=== PATIENT | male | born 1955 | race Hispanic/Latino ===

== ENCOUNTER 2018-07-03 12:49 | Observation (INO) | payer MEDICARE, BC ==
[~2018-07-03] VITALS: Ht 177.8 cm; Wt 102.1 kg
--- OUTSIDE RECORDS SUMMARY | 2018-07-03 12:52 | XMS REPORT | Continuity of Care Document ---
Author Author [facility] Interface Address Unknown Phone Unavailable Problems Problem Status Onset Date Classification Date Reported Comments Source Epigastric pain 12/01/2017 06/16/2018 [facility] DIAC Active 11/27/2017 [facility] ABD PAIN Active 01/05/2017 [facility] Arthritis Resolved Problem 06/16/[address] [facility] Diabetes Resolved Problem 06/16/[address] [facility] Hypertension Resolved Problem 06/16/[address] [facility] Neuropathy Resolved Problem 06/16/[address] [facility] Carpal tunnel syndrome Resolved Problem 06/16/2018 [facility] Cataract Resolved Problem 06/16/2018 [facility] Stroke Resolved Problem 06/16/2018 [facility] Depression Resolved Problem 06/16/2018 [facility] Erectile dysfunction due to arterial insufficiency Resolved Problem 06/16/2018 [facility] Claudication Resolved Problem 06/16/2018 [facility] Obesity Resolved Problem 06/16/2018 [facility] Unspecified osteoarthritis, unspecified site Resolved Problem 06/16/2018 [facility] Sleep apnea Resolved Problem 06/16/2018 [facility] Testicular hypofunction Resolved Problem 06/16/2018 [facility] Other dorsalgia Resolved Problem 06/16/2018 [facility] RT HIP PAIN Active [facility] [place] EPIGASTRIC PAIN Active [facility] Medications Medication Details Route Status Patient Instructions Ordering Provider Order Date Source Metronidazole 500 MG Oral Tablet [Flagyl] 500 mg=1 tab, PO, Q8H, X 5 day, # 15 tab, 0 Refill(s) Active 01/06/2017 [facility] Amlodipine 10 mg, 2 tab, Route: PO, Drug form: TAB, Daily, Dosing Weight 102.273, kg, Start date: 01/06/17 9:00:00 CDT, Duration: 30 day, Stop date: 02/04/17 9:00:00 CSTNotes: (Same as: Norvasc) Inactive 01/06/2017 [facility] Docusate 100 mg, 1 cap, Route: PO, Drug form: CAP, BID, Dosing Weight 102.273, kg, Start date: 01/06/17 9:00:00 CDT, Duration: 30 day, Stop date: 02/04/17 17:00:00 CSTNotes: (Same as: Colace) (Do Not Crush) Inactive 01/06/2017 [facility] influenza virus vaccine, inactivated 0.5 mL, Route: IM, Drug Form: SUSP, Daily, Start date: 01/06/17 9:00:00 CDT, Duration: 1 doses or times, Stop date: 01/06/17 9:00:00 CDTNotes: (Same as: Fluzone Quadrivalent, Fluarix Quadrivalent) For 3 years of age and older (0.5 mL IM) Shake well before use Inactive 01/06/2017 [facility] Fluticasone propionate 0.05 MG/ACTUAT Metered Dose Nasal Burney [Flonase] 2 spray, Route: Each Affected Nostril, Drug Form: SPRY, Dosing Weight 102.273, kg, Daily, PRN Nasal Congestion, Start date: 01/06/17 0:22:00 CDT, Duration: 30 day, Stop date: 02/05/17 0:21:00 CSTNotes: (Same as: Flonase) Inactive 01/06/2017 [facility] Fluticasone propionate 0.05 MG/ACTUAT Metered Dose Nasal Burney [Flonase] 2 spray, Route: Each Affected Nostril, Drug Form: SPRY, Dosing Weight 102.273, kg, Q6H, PRN Nasal Congestion, Start date: 01/05/17 23:55:00 CDT, Duration: 30 day, Stop date: 02/04/17 23:54:00 CSTNotes: (Same as: Flonase) No Longer Active 01/06/2017 [facility] Insulin Lispro 6 unit, 0.06 mL, Route: SUB-Q, Drug form: SOLN, TID-Before Meals, Dosing Weight 102.273, kg, PRN Blood Glucose Results, Start date: 01/05/17 23:25:00 CDT, Duration: 30 day, Stop date: 02/04/17 23:24: 00 CSTNotes: Roll in palms of hands gently; Do not shake `vigorously. (Same as: Humalog ) "Single Patient Use Only " WASTE: F/P - Black; E - Municipal Trash Bin Stable for 28 days at room temperature. Expires in days from Date No Longer Active 01/06/2017 [facility] Dextrose 50% Syringe 25 gm, 50 mL, Route: IVP, Drug Form: INJ, Dosing Weight 102.273, kg, PRN, PRN Blood Glucose Results, Start date: 01/05/17 23:25:00 CDT, Duration: 30 day, Stop date: 02/04/17 22:24:00 [facility] No Longer Active 01/06/2017 [facility] Glucagon 1 mg, Route: IM, Drug form: PDR/INJ, PRN, Dosing Weight 102.273, kg, PRN Blood Glucose Results, Start date: 01/05/17 23:25:00 CDT, Duration: 30 day, Stop date: 02/04/17 22:24:00 [facility] No Longer Active 01/06/2017 [facility] Ondansetron 4 mg, Route: IV, Q6H, Dosing Weight 102.273, kg, PRN, Start date: 01/05/17 21:25:00 CDT, Duration: 30 day, Stop date: 02/04/17 21:24:00 [facility], Nausea and Vomiting Inactive 01/06/2017 [facility] Morphine 4 mg, 1 mL, Route: IV, Drug form: SOLN, Q6H, Dosing Weight 102.273, kg, PRN Pain Score 6-10, Start date: 01/05/17 21:25:00 CDT, Duration: 30 day, Stop date: 02/04/17 21:24:00 [facility], PainNotes: (Same as:MORPhine Sulfate) No Longer Active 01/06/2017 [facility] Vancomycin 1.25 gm, 250 mL, Route: IV, Drug form: INJ, [id number], Dosing Weight 84.091, kg, Start date: 01/05/17 20:00:00 CDT, Duration: 30 day, Stop date: 02/04/17 8:00:00 [facility], ABX Indication: Intra-abdominal Infec tionNotes: TIME CRITICAL MEDICATION Same as: Vancocin-NS (premixed) Infusion rate 2001 mg: infuse over 2.5 hours No Longer Active 01/06/2017 [facility] Flagyl 500 mg, 100 mL, Route: IVPB, Drug form: INJ, ABXQ8H, Dosing Weight 84.091, kg, Start date: 01/05/17 18:00:00 CDT, Duration: 5 day, Stop date: 01/10/17 10:00:00 CDT, ABX Indication: Intra-abdominal Infec tionNotes: (Same as: Flagyl) Avoid alcohol. No Longer Active 01/05/2017 [facility] cefepime 1 gm, Route: IVPB, ABXQ8H, Dosing Weight 84.091, kg, (CrCl >/=50 ml/min), Start date: 01/05/17 18:00:00 CDT, Duration: 5 day, Stop date: 01/10/17 10:00:00 CDT, ABX Indication: Intra-abdominal InfectionNotes: (Same As: Maxipime) MEDICATION WASTE Product Size: 1000 mg Product Wasted: ___ mg No Longer Active 01/05/2017 [facility] Vancomycin 1 ea, Route: MISC, ONCALL, Dosing Weight 84.091, kg, Start date: 01/05/17 18:00:00 CDT, day, Stop date: 01/05/17 18:00:00 CDT, Pharmacy to dose, ABX Indication: Intra-abdominal Infection Inactive 01/05/2017 [facility] Glucagon 1 mg, Route: IM, Drug form: PDR/INJ, PRN, Dosing Weight 102.273, kg, PRN Blood Glucose Results, Start date: 01/05/17 17:28:00 CDT, Duration: 30 day, Stop date: 02/04/17 16:27:00 [facility] No Longer Active 01/05/2017 [facility] Dextrose 50% Syringe 12.5 gm, 25 mL, Route: IVP, Drug Form: INJ, Dosing Weight 102.273, kg, PRN, PRN Blood Glucose Results, Start date: 01/05/17 17:28:00 CDT, Duration: 30 day, Stop date: 02/04/17 16:27:00 [facility] No Longer Active 01/05/2017 [facility] sodium chloride 0.9% 1000 ml INJ 1,000 mL 1,000 mL, Rate: 125 ml/hr, Infuse over: 8 hr, Route: IV, Dosing Weight 102.273 kg, Total Volume: 1,000, Start date: 01/05/17 17:27:00 CDT, Duration: 30 day, Stop date: 02/04/17 17:26:00 [facility] No Longer Active 01/05/2017 [facility] Ondansetron 4 mg, 2 mL, Route: IVP, Drug form: INJ, Q6H, Dosing Weight 102.273, kg, PRN Nausea & Vomiting, Start date: 01/05/17 17:26:00 CDT, Duration: 30 day, Stop date: 02/04/17 17:25:00 CSTNotes: (Same as: Zofran) MEDICATION WASTE Product Size: 4 mg Product Wasted: ___ mg No Longer Active 01/05/2017 [facility] Acetaminophen 650 mg, 2 tab, Route: PO, Drug form: TAB, Q4H, Dosing Weight 102.273, kg, PRN Pain 1-3/Temp > 100.4 F, Start date: 01/05/17 17:26:00 CDT, Duration: 30 day, Stop date: 02/04/17 17:25:00 CSTNotes: Do not exceed 4 gm/day. (Same as: Tylenol) No Longer Active 01/05/2017 [facility] Zosyn 3.375 gm, Route: IVPB, Drug form: PDR/INJ, ABXQ8H, Dosing Weight 84.091, kg, CrCl >=20 ml/min infuse over 4 hours, Priority: STAT, Start date: 01/05/17 17:03:00 CDT, Duration: 5 day, Stop date: 01/10/17 9:03:00 CDT, ABX Indication: Intra-abdominal In... Inactive 01/05/2017 [facility] pregabalin 100 MG Oral Capsule [Lyrica] 100 mg=1 cap, PO, BID, 0 Refill(s) No Longer Active 01/05/2017 [facility] Metformin 1,000 mg, PO, BID, 0 Refill(s) Active 01/05/2017 [facility] Omeprazole 40 mg, PO, Daily, 0 Refill(s) No Longer Active 01/05/2017 [facility] Amlodipine 10 mg, PO, Daily, 0 Refill(s) Active 01/05/2017 [facility] Allergies, Adverse Reactions, Alerts Substance Category Reaction Severity Reaction type Status Date Reported Comments Source Immunizations Immunization Date Given Site Status Last Updated Comments Source influenza virus vaccine, inactivated 01/06/2017 Not Given [facility] Results Order Name Results Value Reference Range Date Interpretation Comments Source Abdomen 2 views DX Abdomen 2 views DX 2 VIEW ABDOMEN INDICATION: Food poisoning 2 weeks ago. Patient now says her "stomach doesn't feel right" however she denies nausea, abdominal pain, vomiting or diarrhea. COMPARISON: No priors available. The bowel gas pattern, soft tissues and bones appear normal. Lung bases clear. IMPRESSION: Normal exam. END IMPRESSION SL: [id number] 11/27/2017 - - Read by: Kvng Anthony MD Dictated Date/time: 11/27/17 16:50 Electronically Signed by: Kvng Anthony MD 11/27/17 16:51 FINAL REPORT [facility] Spine lumbar wo contrast MRI Spine lumbar wo contrast MRI EXAM: MRI LUMBAR SPINE WITHOUT CONTRAST DATE: 02/14/2017 6:16 PM [facility] . ORDERING PHYSICIAN: Kallie Rivera MD CLINICAL INDICATION: back pain - back pain; TECHNIQUE: Multiplanar, multisequence MRI lumbar spine without IV contrast COMPARISON: Unavailable FINDINGS: For the purposes of enumeration, the lowest well formed intervertebral disc was counted as L5-S1 on this exam. INTRASPINAL CONTENTS/CONUS: The conus terminates at L1-L2. No definite dural based lesion. VERTEBRAE: The vertebrae are normal in height. No focal suspicious bone marrow signal abnormality. PARASPINAL SOFT TISSUES: No edema or definite masses. No aortic aneurysm. DISC SPACES, SPINAL CANAL, AND NEURAL FORAMINA: T12-L1. Intervertebral disc height and signal are maintained. Posterior elements are normal. There is no stenosis. L1-L2. Intervertebral disc height and signal are maintained. Posterior elements are normal. There is no stenosis. L2-L3. There is bilateral facet hypertrophy with ligamentous redundancy. This is dehydrated with small diffuse bulge. Central canal measures 11 mm. Lateral recesses are patent. There is mild narrowing of the neural foramina with no mass effect on the L2 nerve roots. L3-L4. There is severe facet hypertrophy with ligamentous redundancy. There is 2 mm anterolisthesis of L3 relative to L4. The disc is dehydrated with small pseudobulge. Central canal measures 7 mm with no cauda equina mass effect. Lateral recesses are narrowed without compression of L4 normal disc. There is moderate to severe narrowing of the right neural foramen and moderate narrowing of the left. There is mass effect on the exiting right L3 nerve root. L4-L5. There is bilateral facet hypertrophy with ligamentous redundancy. There is minimal anterolisthesis of L4 relative L5. The disc is dehydrated with annular pseudobulge but no substantial height loss. Central canal measures 8 mm with no cauda equina crowding. Lateral recesses are narrowed with disc and facets contacting both descending L5 nerve. There is moderate to severe narrowing of the right neural foramina moderate narrowing of the left. L5-S1. Discs dehydrated with diffuse disc bulge. There is mild facet hypertrophy. Central canal measures 13 mm. lateral recesses are patent. There is moderate neuroforaminal foramina bilaterally. IMPRESSION: 1. L3-4 and L4-5 facet arthropathy, mild grade 1 spondylolisthesis, and mild spinal stenosis without cauda equina crowding. There is moderate to severe narrowing of the neural foramina on the right at both levels 2. Please see additional comment above. 02/14/2017 - - Read by: Edward Escobar MD Dictated Date/time: 02/15/17 06:21 Electronically Signed by: Edward Escobar MD 02/15/17 06:[address] [facility] CHEM PANEL Lactic Acid Lvl 1.9 mMol/L 0.5 - 2.2 01/06/2017 [facility] URINE AND STOOL UA Leuk Est Negative (01/05/17 7:37 PM) Negative 01/06/2017 [facility] URINE AND STOOL UA Sq Epi Occasional /LPF Few /LPF 01/06/2017 [facility] URINE AND STOOL UA Blood Negative (01/05/17 7:37 PM) Negative 01/06/2017 [facility] URINE AND STOOL UA Nitrite Negative (01/05/17 7:37 PM) Negative 01/06/2017 [facility] URINE AND STOOL UA WBC 1 /HPF 0 - 5 01/06/2017 [facility] URINE AND STOOL UA Protein Negative mg/dL Negative mg/dL 01/06/2017 [facility] URINE AND STOOL UA Glucose 500 mg/dL Negative mg/dL 01/06/2017 [facility] URINE AND STOOL UA pH 5.0 5.0 - 8.0 01/06/2017 [facility] URINE AND STOOL UA Ketones Trace mg/dL Negative mg/dL 01/06/2017 [facility] URINE AND STOOL UA Bili Negative *NA* (01/05/17 7:37 PM) Negative 01/06/2017 [facility] URINE AND STOOL UA Turbidity Clear (01/05/17 7:37 PM) Clear 01/06/2017 [facility] URINE AND STOOL UA Spec Grav 1.031 <=1.030 01/06/2017 [facility] URINE AND STOOL UA Color Ltyellow 01/06/2017 [facility] URINE AND STOOL UA Urobilinogen <=1.0 mg/dL 0.1 - 1.0 01/06/2017 [facility] URINE AND STOOL UA RBC null 0 - 2 01/06/2017 [facility] CARDIAC ENZYMES BNP 16 pg/mL <=100 pg/mL 01/05/2017 [facility] CARDIAC ENZYMES Troponin-I null 0.00 - 0.40 01/05/2017 [facility] CHEM PANEL Globulin 2.9 g/dL 2.7 - 4.2 01/05/2017 [facility] CHEM PANEL Bili Indirect 0.4 mg/dL 0.0 - 1.0 01/05/2017 [facility] CHEM PANEL A/G Ratio 1.1 0.7 - 1.6 01/05/2017 [facility] CHEM PANEL Bili Total 0.5 mg/dL 0.2 - 1.3 01/05/2017 [facility] CHEM PANEL Bili Direct 0.1 mg/dL 0.0 - 0.3 01/05/2017 [facility] CHEM PANEL Total Protein 6.2 g/dL 6.4 - 8.4 01/05/2017 [facility] CHEM PANEL ALT 46 unit/L 0 - 65 01/05/2017 [facility] CHEM PANEL Albumin Lvl 3.3 g/dL 3.5 - 5.0 01/05/2017 [facility] CHEM PANEL Alk Phos 51 unit/L 39 - 136 01/05/2017 [facility] CHEM PANEL AST 20 unit/L 0 - 37 01/05/2017 [facility] ELECTROLYTES AGAP 14.3 meq/L 10.0 - 20.0 01/05/2017 [facility] ELECTROLYTES eGFR 71 mL/min/1.73m2 01/05/2017 Result Comment: The eGFR is calculated using the CKD-EPI formula. In most young, healthy individuals the eGFR will be >90 mL/min/1.73m2. The eGFR declines with age. An eGFR of 60-89 may be normal in some populations, particularly the elderly, for whom the CKD-EPI formula has not been extensively validated. Use of the eGFR is not recommended in the following populations: Individuals with unstable creatinine concentrations, including patients and those with serious co-morbid conditions. Patients with extremes in muscle mass or diet. The data above are obtained from the National Kidney Disease Education Program (NKDEP) which additionally recommends that when the eGFR is used in patients with extremes of body mass index for purposes of drug dosing, the eGFR should be multiplied by the estimated BMI. [facility] ELECTROLYTES Calcium Lvl 7.6 mg/dL 8.5 - 10.5 01/05/2017 [facility] ELECTROLYTES Chloride Lvl 103 meq/L 95 - 109 01/05/2017 [facility] ELECTROLYTES CO2 27 meq/L 24 - 32 01/05/2017 [facility] ELECTROLYTES Sodium Lvl 140 meq/L 135 - 145 01/05/2017 [facility] ELECTROLYTES Potassium Lvl 4.3 meq/L 3.5 - 5.1 01/05/2017 [facility] ELECTROLYTES Glucose Lvl 178 mg/dL 70 - 99 01/05/2017 [facility] ELECTROLYTES BUN 21 mg/dL 7 - 22 01/05/2017 [facility] ELECTROLYTES Creatinine Lvl 1.10 mg/dL 0.50 - 1.40 01/05/2017 [facility] RBC 4.32 M/CMM 4.70 - 6.10 01/05/2017 [facility] WBC 5.5 K/CMM 3.7 - 10.4 01/05/2017 [facility] MCV 94.0 fL 80.0 - 94.0 01/05/2017 [facility] MCHC 34.0 g/dL 32.0 - 36.0 01/05/2017 [facility] MCH 32.0 pg 27.0 - 31.0 01/05/2017 [facility] Hgb 13.8 g/dL 14.0 - 18.0 01/05/2017 [facility] Hct 40.6 % 42.0 - 54.0 01/05/2017 [facility] RDW 13.6 % 11.5 - 14.5 01/05/2017 [facility] MPV 8.3 fL 7.4 - 10.4 01/05/2017 [facility] Platelet 160 K/CMM 133 - 450 01/05/2017 [facility] HEMATOLOGY Lymphocytes 2.5 % 20.0 - 40.0 01/05/2017 [facility] HEMATOLOGY Eosinophils 0.1 % 0.0 - 4.0 01/05/2017 [facility] HEMATOLOGY Monocytes 4.8 % 2.0 - 12.0 01/05/2017 [facility] HEMATOLOGY Segs 92.3 % 45.0 - 75.0 01/05/2017 [facility] HEMATOLOGY Monocytes # 0.3 K/CMM 0.0 - 0.8 01/05/2017 [facility] HEMATOLOGY Lymphocytes # 0.1 K/CMM 1.0 - 5.5 01/05/2017 [facility] HEMATOLOGY Segs-Bands # 5.1 K/CMM 1.5 - 8.1 01/05/2017 [facility] HEMATOLOGY Basophils 0.3 % 0.0 - 1.0 01/05/2017 [facility] Vital Signs Vital Sign Value Date Comments Source Systolic (mm Hg) 116 01/06/2017 [facility] Diastolic (mm Hg) 65 01/06/2017 [facility] Respitory Rate 16 01/06/2017 [facility] Heart Rate 76 01/06/2017 [facility] Temperature Oral (F) 98.1 F 01/06/2017 [facility] Respitory Rate 16 01/06/2017 [facility] Heart Rate 89 01/06/2017 [facility] Temperature Oral (F) 99.9 F 01/06/2017 [facility] Systolic (mm Hg) 119 01/06/2017 [facility] Diastolic (mm Hg) 63 01/06/2017 [facility] Temperature Oral (F) 99 F 01/06/2017 [facility] Systolic (mm Hg) 115 01/06/2017 [facility] Diastolic (mm Hg) 62 01/06/2017 [facility] Respitory Rate 17 01/06/2017 [facility] Heart Rate 91 01/06/2017 [facility] Height 177.8 cm 01/05/2017 [facility] Weight 102.273 01/05/2017 [facility] BMI Calculated 32.35 01/05/2017 [facility] Encounters Location Location Details Encounter Type Encounter Number Reason For Visit Attending Provider ADM Date DC Date Status Source [facility] OP Therapy Patients [id number] Anderson Bell 04/11/2014 05/11/2014 [facility] OP Therapy Patients [id number] Anderson Bell 05/15/2014 06/14/2014 [facility] Observation [id number] Chilo Zarco 01/05/2017 01/06/2017 [facility] Outpatient Imaging [facility] Out[facility] Diag Services [id number] Kallie Rivera 02/14/2017 02/15/2017 [facility] Outpatient [id number] Ilan Moreno 11/27/2017 11/28/2017 [facility] Outpatient [id number] ALYSSIA STEVEN 05/29/2018 [facility] Outpatient [id number] ALYSSIA HARRIS 11/27/2018 Active [facility] Procedures Procedure Code Date Perfomer Comments Source Ankle joint operations 546220033 [facility] Carpal tunnel release [id number] [facility] Knee replacement [id number] [facility] Ankle joint operations [id number] [facility] Carpal tunnel release [id number] [facility] Knee replacement [id number] [facility] Cataract surgery [id number] [facility] [id number] [facility]
--- OUTSIDE RECORDS SUMMARY | 2018-07-03 12:52 | XMS REPORT | Summary of Care ---
Author Author [facility] Organization [facility] Address Unknown Phone Unavailable Encounter HQ Kaia(JOSÉ MANUEL) [id number] Date(s): 01/05/17 - 01/06/17 [facility] [address] [place] [address]- Discharge Disposition: Home or Self Care Attending Physician: Chilo Zarco MD Admitting Physician: Chilo Zarco MD Vital Signs 1 2 3 Most recent to oldest [Reference Range]: 177.8 cm (01/05/17 5:21 PM) Height 98.1 DegF (01/06/17 6:45 AM) 99.9 DegF *HI* (01/06/17 3:42 AM) 99 DegF (01/05/17 11:06 PM) Temperature Oral [96.4-99.1 DegF] 116/65 mmHg (01/06/17 6:45 AM) 119/63 mmHg (01/06/17 3:42 AM) 115/62 mmHg (01/05/17 11:06 PM) Blood Pressure [90-140/60-90 mmHg] 16 BRMIN (01/06/17 6:45 AM) 16 BRMIN (01/06/17 3:42 AM) 17 BRMIN (01/05/17 11:06 PM) Respiratory Rate [14-20 BRMIN] 76 bpm (01/06/17 6:45 AM) 89 bpm (01/06/17 3:42 AM) 91 bpm (01/05/17 11:06 PM) Peripheral Pulse Rate [60-100 bpm] 102.273 kg (01/05/17 5:21 PM) Weight 32.35 m2 (01/05/17 5:21 PM) Body Mass Index Problem List Condition Effective Dates Status Health Status Informant Arthritis(Confirmed) Resolved Diabetes(Confirmed) Resolved Hypertension(Confirm Resolved ed) Neuropathy(Confirmed Resolved ) Allergies, Adverse Reactions, Alerts Substance Reaction Severity Status NKDA Active Medications acetaminophen 650 mg, 2 tab, Route: PO, Drug form: TAB, Q4H, Dosing Weight 102.273, kg, PRN Pa in 1-3/Temp > 100.4 F, Start date: 01/05/17 17:26:00 CDT, Duration: 30 day, Stop date: 02/04/17 17:25:00 PERIOPERATIVE ASSISTANT Notes: Do not exceed 4 gm/day. (Same as: Tylenol) Start Date: 01/05/17 Stop Date: 01/06/17 Status: Discontinued amLODIPine 10 mg, 2 tab, Route: PO, Drug form: TAB, Daily, Dosing Weight 102.273, kg, Start date: 01/06/17 9:00:00 CDT, Duration: 30 day, Stop date: 02/04/17 9:00:00 PERIOPERATIVE ASSISTANT Notes: (Same as: Norvasc) Start Date: 01/06/17 Stop Date: 01/06/17 Status: Discontinued amLODIPine 10 mg, PO, Daily, 0 Refill(s) Start Date: 01/05/17 Status: Ordered cefepime + sodium chloride 0.9% INJ 100 mL 1 gm, Route: IVPB, ABXQ8H, Dosing Weight 84.091, kg, (CrCl >/=50 ml/min), Start date: 01/05/17 18:00:00 CDT, Duration: 5 day, Stop date: 01/10/17 10:00:00 CDT, ABX Indication: Intra-abdominal Infection Notes: (Same As: Maxipime) MEDICATION WASTE Product Size: 1000 mgProduc t Wasted: ___ mg Start Date: 01/05/17 Stop Date: 01/06/17 Status: Discontinued Dextrose 50% Syringe 25 gm, 50 mL, Route: IVP, Drug Form: INJ, Dosing Weight 102.273, kg, PRN, PRN Bl ood Glucose Results, Start date: 01/05/17 23:25:00 CDT, Duration: 30 day, Stop d ate: 02/04/17 22:24:00 PERIOPERATIVE ASSISTANT Start Date: 01/05/17 Stop Date: 01/06/17 Status: Discontinued Dextrose 50% Syringe 12.5 gm, 25 mL, Route: IVP, Drug Form: INJ, Dosing Weight 102.273, kg, PRN, PRN Blood Glucose Results, Start date: 01/05/17 23:25:00 CDT, Duration: 30 day, Stop date: 02/04/17 22:24:00 PERIOPERATIVE ASSISTANT Start Date: 01/05/17 Stop Date: 01/06/17 Status: Discontinued Dextrose 50% Syringe 12.5 gm, 25 mL, Route: IVP, Drug Form: INJ, Dosing Weight 102.273, kg, PRN, PRN Blood Glucose Results, Start date: 01/05/17 17:28:00 CDT, Duration: 30 day, Stop date: 02/04/17 16:27:00 PERIOPERATIVE ASSISTANT Start Date: 01/05/17 Stop Date: 01/06/17 Status: Discontinued Dextrose 50% Syringe 25 gm, 50 mL, Route: IVP, Drug Form: INJ, Dosing Weight 102.273, kg, PRN, PRN Bl ood Glucose Results, Start date: 01/05/17 17:28:00 CDT, Duration: 30 day, Stop d ate: 02/04/17 16:27:00 PERIOPERATIVE ASSISTANT Start Date: 01/05/17 Stop Date: 01/06/17 Status: Discontinued docusate 100 mg, 1 cap, Route: PO, Drug form: CAP, BID, Dosing Weight 102.273, kg, Start date: 01/06/17 9:00:00 CDT, Duration: 30 day, Stop date: 02/04/17 17:00:00 PERIOPERATIVE ASSISTANT Notes: (Same as: Colace) (Do Not Crush) Start Date: 01/06/17 Stop Date: 01/06/17 Status: Discontinued Flagyl 500 mg, 100 mL, Route: IVPB, Drug form: INJ, ABXQ8H, Dosing Weight 84.091, kg, S tart date: 01/05/17 18:00:00 CDT, Duration: 5 day, Stop date: 01/10/17 10:00:00 CDT, ABX Indication: Intra-abdominal Infection Notes: (Same as: Flagyl) Avoid alcohol. Start Date: 01/05/17 Stop Date: 01/06/17 Status: Discontinued Flagyl 500 mg oral tablet 500 mg=1 tab, PO, Q8H, X 5 day, # 15 tab, 0 Refill(s) Start Date: 01/06/17 Stop Date: 01/11/17 Status: Ordered Flonase 0.05 mg/inh nasal spray 2 spray, Route: Each Affected Nostril, Drug Form: SPRY, Dosing Weight 102.273, k g, Daily, PRN Nasal Congestion, Start date: 01/06/17 0:22:00 CDT, Duration: 30 d ay, Stop date: 02/05/17 0:21:00 PERIOPERATIVE ASSISTANT Notes: (Same as: Flonase) Start Date: 01/06/17 Stop Date: 01/06/17 Status: Discontinued Flonase 0.05 mg/inh nasal spray 2 spray, Route: Each Affected Nostril, Drug Form: SPRY, Dosing Weight 102.273, k g, Q6H, PRN Nasal Congestion, Start date: 01/05/17 23:55:00 CDT, Duration: 30 da y, Stop date: 02/04/17 23:54:00 PERIOPERATIVE ASSISTANT Notes: (Same as: Flonase) Start Date: 01/05/17 Stop Date: 01/06/17 Status: Discontinued glucagon 1 mg, Route: IM, Drug form: PDR/INJ, PRN, Dosing Weight 102.273, kg, PRN Blood G lucose Results, Start date: 01/05/17 23:25:00 CDT, Duration: 30 day, Stop date: 02/04/17 22:24:00 PERIOPERATIVE ASSISTANT Start Date: 01/05/17 Stop Date: 01/06/17 Status: Discontinued glucagon 1 mg, Route: IM, Drug form: PDR/INJ, PRN, Dosing Weight 102.273, kg, PRN Blood G lucose Results, Start date: 01/05/17 17:28:00 CDT, Duration: 30 day, Stop date: 02/04/17 16:27:00 PERIOPERATIVE ASSISTANT Start Date: 01/05/17 Stop Date: 01/06/17 Status: Discontinued influenza virus vaccine, inactivated 0.5 mL, Route: IM, Drug Form: SUSP, Daily, Start date: 01/06/17 9:00:00 CDT, Dur ation: 1 doses or times, Stop date: 01/06/17 9:00:00 CDT Notes: (Same as: Fluzone Quadrivalent, Fluarix Quadrivalent)For 3 years of age a nd older (0.5 mL IM)Shake well before use Start Date: 01/06/17 Stop Date: 01/06/17 Status: Completed insulin lispro 6 unit, 0.06 mL, Route: SUB-Q, Drug form: SOLN, TID-Before Meals, Dosing Weight 102.273, kg, PRN Blood Glucose Results, Start date: 01/05/17 23:25:00 CDT, Durat ion: 30 day, Stop date: 02/04/17 23:24:00 PERIOPERATIVE ASSISTANT Notes: Roll in palms of hands gently; Do not shake `vigorously. (Same [facility]: [facility] )"Single Patient Use Only "WASTE: F/P - Black; E - Municipal Trash Bin Stabl e for 28 days at room temperature.Expires in days from Date Start Date: 01/05/17 Stop Date: 01/06/17 Status: Discontinued insulin lispro 2 unit, 0.02 mL, Route: SUB-Q, Drug form: SOLN, TID-Before Meals, Dosing Weight 102.273, kg, PRN Blood Glucose Results, Start date: 01/05/17 23:25:00 CDT, Durat ion: 30 day, Stop date: 02/04/17 23:24:00 PERIOPERATIVE ASSISTANT Notes: Roll in palms of hands gently; Do not shake `vigorously. (Same as: Gloria og )"Single Patient Use Only "WASTE: F/P - Black; E - Municipal Trash Bin Stabl e for 28 days at room temperature.Expires in days from Date Start Date: 01/05/17 Stop Date: 01/06/17 Status: Discontinued insulin lispro 4 unit, 0.04 mL, Route: SUB-Q, Drug form: SOLN, TID-Before Meals, Dosing Weight 102.273, kg, PRN Blood Glucose Results, Start date: 01/05/17 23:25:00 CDT, Durat ion: 30 day, Stop date: 02/04/17 23:24:00 PERIOPERATIVE ASSISTANT Notes: Roll in palms of hands gently; Do not shake `vigorously. (Same as: Humal og )"Single Patient Use Only "WASTE: F/P - Black; E - Municipal Trash Bin Stabl e for 28 days at room temperature.Expires in days from Date Start Date: 01/05/17 Stop Date: 01/06/17 Status: Discontinued insulin lispro 8 unit, 0.08 mL, Route: SUB-Q, Drug form: SOLN, TID-Before Meals, Dosing Weight 102.273, kg, PRN Blood Glucose Results, Start date: 01/05/17 23:25:00 CDT, Durat ion: 30 day, Stop date: 02/04/17 23:24:00 PERIOPERATIVE ASSISTANT Notes: Roll in palms of hands gently; Do not shake `vigorously. (Same as: Humal og )"Single Patient Use Only "WASTE: F/P - Black; E - Municipal Trash Bin Stabl e for 28 days at room temperature.Expires in days from Date Start Date: 01/05/17 Stop Date: 01/06/17 Status: Discontinued insulin lispro 10 unit, 0.1 mL, Route: SUB-Q, Drug form: SOLN, TID-Before Meals, Dosing Weight 102.273, kg, PRN Blood Glucose Results, Start date: 01/05/17 23:25:00 CDT, Durat ion: 30 day, Stop date: 02/04/17 23:24:00 PERIOPERATIVE ASSISTANT Notes: Roll in palms of hands gently; Do not shake `vigorously. (Same as: Humal og )"Single Patient Use Only "WASTE: F/P - Black; E - Municipal Trash Bin Stabl e for 28 days at room temperature.Expires in days from Date Start Date: 01/05/17 Stop Date: 01/06/17 Status: Discontinued Lyrica 100 mg oral capsule 100 mg=1 cap, PO, BID, 0 Refill(s) Start Date: 01/05/17 Stop Date: 01/06/17 Status: Discontinued metFORMIN 1,000 mg, PO, BID, 0 Refill(s) Start Date: 01/05/17 Status: Ordered morphine Sulfate 4 mg, 1 mL, Route: IV, Drug form: SOLN, Q6H, Dosing Weight 102.273, kg, PRN Pain Score 6-10, Start date: 01/05/17 21:25:00 CDT, Duration: 30 day, Stop date: 21:24:00 PERIOPERATIVE ASSISTANT, Pain Notes: (Same as:MORPhine Sulfate) Start Date: 01/05/17 Stop Date: 01/06/17 Status: Discontinued omeprazole 40 mg, PO, Daily, 0 Refill(s) Start Date: 01/05/17 Stop Date: 01/06/17 Status: Discontinued ondansetron 4 mg, 2 mL, Route: IVP, Drug form: INJ, Q6H, Dosing Weight 102.273, kg, PRN Naus ea & Vomiting, Start date: 01/05/17 17:26:00 CDT, Duration: 30 day, Stop date: 02/04/17 17:25:00 PERIOPERATIVE ASSISTANT Notes: (Same as: Ivana) MEDICATION WASTE Product Size: 4 mgProduct Was merritt: ___ mg Start Date: 01/05/17 Stop Date: 01/06/17 Status: Discontinued ondansetron 4 mg, Route: IV, Q6H, Dosing Weight 102.273, kg, PRN, Start date: 01/05/17 21:25 :00 CDT, Duration: 30 day, Stop date: 02/04/17 21:24:00 PERIOPERATIVE ASSISTANT, Nausea and Vomiting Start Date: 01/05/17 Stop Date: 01/05/17 Status: Deleted sodium chloride 0.9% 1000 ml INJ 1,000 mL 1,000 mL, Rate: 125 ml/hr, Infuse over: 8 hr, Route: IV, Dosing Weight 102.273 k g, Total Volume: 1,000, Start date: 01/05/17 17:27:00 CDT, Duration: 30 day, Sto p date: 02/04/17 17:26:00 PERIOPERATIVE ASSISTANT Start Date: 01/05/17 Stop Date: 01/06/17 Status: Discontinued vancomycin 1.25 gm, 250 mL, Route: IV, Drug form: INJ, [id number], Dosing Weight 84.091, kg, S tart date: 01/05/17 20:00:00 CDT, Duration: 30 day, Stop date: 02/04/17 8:00:00 PERIOPERATIVE ASSISTANT, ABX Indication: Intra-abdominal Infection Notes: TIME CRITICAL MEDICATIONSame as: Vancocin-NS (premixed)Infusion rate< 1000 mg: infuse over 1 [id number] - 1500 mg: infuse over 1.5 [id number] - 2000 mg: infuse over 2 hours> 2001 mg: infuse over 2.5 hours Start Date: 01/05/17 Stop Date: 01/06/17 Status: Discontinued Vancomycin Pharmacy Dosing 1 ea, Route: MISC, ONCALL, Dosing Weight 84.091, kg, Start date: 01/05/17 18:00: 00 CDT, day, Stop date: 01/05/17 18:00:00 CDT, Pharmacy to dose, ABX Indication: Intra-abdominal Infection Start Date: 01/05/17 Stop Date: 01/05/17 Status: Deleted Zosyn 3.375 gm, Route: IVPB, Drug form: PDR/INJ, ABXQ8H, Dosing Weight 84.091, kg, CrC l >=20 ml/min infuse over 4 hours, Priority: STAT, Start date: 01/05/17 17:03:00 CDT, Duration: 5 day, Stop date: 01/10/17 9:03:00 CDT, ABX Indication: Intra-abdominal In... Start Date: 01/05/17 Stop Date: 01/05/17 Status: Discontinued Results ELECTROLYTES Most recent to 1 oldest [Reference Range]: Sodium Lvl [135-145 140 mEq/L mEq/L] (01/05/17 6:00 PM) Potassium Lvl 4.3 mEq/L [3.5-5.1 mEq/L] (01/05/17 6:00 PM) Chloride Lvl [95-109 103 mEq/L mEq/L] (01/05/17 6:00 PM) CO2 [24-32 mEq/L] 27 mEq/L (01/05/17 6:00 PM) AGAP [10.0-20.0 14.3 mEq/L mEq/L] (01/05/17 6:00 PM) CHEM PANEL Most recent to 1 oldest [Reference Range]: Creatinine Lvl 1.10 mg/dL [0.50-1.40 mg/dL] (01/05/17 6:00 PM) eGFR 71 mL/min/1.73m2 1 *NA* (01/05/17 6:00 PM) BUN [7-22 mg/dL] 21 mg/dL (01/05/17 6:00 PM) Glucose Lvl [70-99 178 mg/dL mg/dL] *HI* (01/05/17 6:00 PM) Total Protein 6.2 g/dL [6.4-8.4 g/dL] *LOW* (01/05/17 6:00 PM) Albumin Lvl [3.5-5.0 3.3 g/dL g/dL] *LOW* (01/05/17 6:00 PM) Globulin [2.7-4.2 2.9 g/dL g/dL] (01/05/17 6:00 PM) A/G Ratio [0.7-1.6] 1.1 (01/05/17 6:00 PM) Calcium Lvl 7.6 mg/dL [8.5-10.5 mg/dL] *LOW* (01/05/17 6:00 PM) ALT [0-65 unit/L] 46 unit/L (01/05/17 6:00 PM) AST [0-37 unit/L] 20 unit/L (01/05/17 6:00 PM) Alk Phos [39-136 51 unit/L unit/L] (01/05/17 6:00 PM) Bili Total [0.2-1.3 0.5 mg/dL mg/dL] (01/05/17 6:00 PM) Bili Direct [0.0-0.3 0.1 mg/dL mg/dL] (01/05/17 6:00 PM) Bili Indirect 0.4 mg/dL [0.0-1.0 mg/dL] (01/05/17 6:00 PM) Lactic Acid Lvl 1.9 mMol/L [0.5-2.2 mMol/L] (01/05/17 7:37 PM) 1Result Comment: The eGFR is calculated using the [...] from the National Kidney Disease Education Program ( NKDEP) which additionally recommends that when the eGFR is used in patients with extremes of body mass index for purposes of drug dosing, the eGFR should be mul tiplied by the estimated BMI. CARDIAC ENZYMES Most recent to 1 oldest [Reference Range]: Troponin-I <0.02 ng/mL [0.00-0.40 ng/mL] (01/05/17 6:00 PM) BNP [<=100 pg/mL] 16 pg/mL (01/05/17 6:00 PM) URINE AND STOOL Most recent to 1 oldest [Reference Range]: UA Turbidity [Clear] Clear (01/05/17 7:37 PM) UA Color Ltyellow *NA* (01/05/17 7:37 PM) UA pH [5.0-8.0] 5.0 (01/05/17 7:37 PM) UA Spec Grav 1.031 [<=1.030] *HI* (01/05/17 7:37 PM) UA Glucose [Negative 500 mg/dL mg/dL] *ABN* (01/05/17 7:37 PM) UA Blood [Negative] Negative (01/05/17 7:37 PM) UA Ketones [Negative Trace mg/dL mg/dL] *ABN* (01/05/17 7:37 PM) UA Protein [Negative Negative mg/dL mg/dL] (01/05/17 7:37 PM) UA Urobilinogen <=1.0 mg/dL [0.1-1.0 mg/dL] *NA* (01/05/17 7:37 PM) UA Bili [Negative] Negative *NA* (01/05/17 7:37 PM) UA Leuk Est Negative [Negative] (01/05/17 7:37 PM) UA Nitrite Negative [Negative] (01/05/17 7:37 PM) UA WBC [0-5 /HPF] 1 /HPF (01/05/17 7:37 PM) UA RBC [0-2 /HPF] <1 /HPF (01/05/17 7:37 PM) UA Sq Epi [Few /LPF] Occasional /LPF *NA* (01/05/17 7:37 PM) HEMATOLOGY Most recent to 1 oldest [Reference Range]: WBC [3.7-10.4 K/CMM] 5.5 K/CMM (01/05/17 6:00 PM) RBC [4.70-6.10 4.32 M/CMM M/CMM] *LOW* (01/05/17 6:00 PM) Hgb [14.0-18.0 g/dL] 13.8 g/dL *LOW* (01/05/17 6:00 PM) Hct [42.0-54.0 %] 40.6 % *LOW* (01/05/17 6:00 PM) MCV [80.0-94.0 fL] 94.0 fL (01/05/17 6:00 PM) MCH [27.0-31.0 pg] 32.0 pg *HI* (01/05/17 6:00 PM) MCHC [32.0-36.0 34.0 g/dL g/dL] (01/05/17 6:00 PM) RDW [11.5-14.5 %] 13.6 % (01/05/17 6:00 PM) Platelet [133-450 160 K/CMM K/CMM] (01/05/17 6:00 PM) MPV [7.4-10.4 fL] 8.3 fL (01/05/17 6:00 PM) Segs [45.0-75.0 %] 92.3 % *HI* (01/05/17 6:00 PM) Lymphocytes 2.5 % [20.0-40.0 %] *LOW* (01/05/17 6:00 PM) Monocytes [2.0-12.0 4.8 % %] (01/05/17 6:00 PM) Eosinophils [0.0-4.0 0.1 % %] (01/05/17 6:00 PM) Basophils [0.0-1.0 0.3 % %] (01/05/17 6:00 PM) Segs-Bands # 5.1 K/CMM [1.5-8.1 K/CMM] (01/05/17 6:00 PM) Lymphocytes # 0.1 K/CMM [1.0-5.5 K/CMM] *LOW* (01/05/17 6:00 PM) Monocytes # [0.0-0.8 0.3 K/CMM K/CMM] (01/05/17 6:00 PM) Immunizations Not Given Vaccine Date Status Refusal Reason influenza virus vaccine, inactivated 01/06/17 Not Given Patient Refuses Procedures Procedure Date Related Diagnosis Body Site Ankle joint operations Carpal tunnel release Knee replacement Social History Social History Type Response Substance Abuse Use: None. Previous Treatment: None. Alcohol Current, Frequency: 1-2 times per month. Previous treatment: None. Alcohol use interferes with work or home: No. Drinks more than intended: No. Others hurt by drinking: No. Ready to change: No. Household alcohol concerns: No. Smoking Status Never smoker; Type: Cigarettes; Previous treatment: None; Exposure to Tobacco Smoke None; Cigarette Smoking Last 365 Days No; Reg Smoking Cessation Counseling No Assessment and Plan Extracted from: Title: Clinical Document Author: Chilo Zarco MD Date: 01/06/17 Date of admission: Date of discharge: 01/06/2017 Reason for admission 1. Gastroenteritis 2. Nausea vomiting 3. Diarrhea Hospital course Mr. Zendejas is a 58-year-old man who presented to a local hospital with nausea vomiting and diarrhea with a fever as high as 101.2. His symptoms started after having an outdoors barbecue event. He was admitted and pancultured. No clear cause for his diarrheal illness could be found. As his symptoms resolved rapidly with IV fluids and IV antibiotics including Flagyl, likely cause for his symptoms were attributed to viral gastroenteritis. Nevertheless, he was monitored a full 4 hours in the CDU. As his vitals remained stable and his symptoms are resolved, the patient will be discharged home. Patient seen and examined on the day of discharge Discharge condition fair Discharge to home Activity as tolerated Diabetic diet recommended Please see discharge medicine regulation form Follow-up with primary care physician Extracted from: Title: Clinical Document Author: Chilo Zarco MD Date: 01/05/17 Date of admission: Reason for admission 1. Gastroenteritis 2. Fever History of present illness Ms. Zendejas is a 61-year-old man with diabetes mellitus who comes in for evaluation of nausea vomiting and diarrhea that started this morning. Patient reports that he had a barbecue event at his house yesterday evening. During this particular event, patient ate significant amount of food including some spicy food. He went to bed feeling fine. He woke up this morning with nausea and vomiting. Since then he has had multiple diarrheal episodes. In the beginning he was having large bowel movements every hour up to 3 times in the early part of the day. Currently, he is having less intense and less frequent diarrhea now. His main issue is cramping in the abdomen. He was noted to have a fever of 101 in the urgent care where he was taken locally. CT abdomen was done which showed no acute findings except for a pulmonary nodule. Currently patient reports having abdominal cramping. Denies having any headache or vision changes. Denies having any pain with urination. Denies having any chest pain or left-sided chest discomfort. Denies having any palpitations. Denies having any new skin color changes. Patient denies seeing any blood or blood products in the stool Past medical history 1. Diabetes mellitus 2. GERD 3. Primary hypertension Medications At Home 1. Amlodipine 10 mg daily. 2. Please see admission medicine regulation form. Past surgical history 1. Bilateral hand surgery 2. Right knee surgery 3. Left ankle surgery Social history 1. Denies any tobacco use 2. Reports social alcohol use. Next Allergies: No known drug allergies Family history: Reviewed but noncontributory Review of systems: As per HPI Physical examination Vitals: Blood pressure 160/69, temperature 101.2, heart rate 105, respiratory 16, 96% room air. General: Awake alert oriented patient appears to be in pain HEENT: No scleral icterus. No JVD Neurologic: No facial asymmetry moving all extremities well. Cardiovascular: Regular rate rhythm S1-S2 Lungs: Clear to auscultation bilaterally. Abdomen: Soft nontender no rebound or guarding there is mild tenderness in the mid abdomen periumbilical region. Extremities: No peripheral edema. Skin: No skin rashes are seen. Laboratory data No laboratory data is available as of now. CT abdomen: Outside records reviewed that showed no acute abnormality except for right adrenal nodule. Assessment and plan Mr. Zendejas is a 61-year-old man who comes in with nausea and vomiting with diarrhea and fever as high as 101.2 concerning for viral or bacterial gastroenteritis. Gastroenteritis, possibley viral. Start supportive care with IV fluids. Start patient on vancomycin, and cefepime with Flagyl due to signs of service. Obtain blood and urine culture. Start stool studies for culture. Tachycardia As patient is quite dehydrated. Start patient on IV fluids. Diabetes mellitus Start patient on insulin sliding scale. Primary hypertension Systolic in the 160s. Start patient on home dose of amlodipine. DVT prophylaxis: SCDs Disposition: Pending clinical improvement
--- OUTSIDE RECORDS SUMMARY | 2018-07-03 12:53 | XMS REPORT | Summary of Care ---
Author Organization Unknown Address Unknown Phone Unavailable Encounter HQ Encntr_alias(FIN) [id number] Date(s): 05/15/14 - 06/13/14 [facility] Discharge Disposition: Home Physician Attending: Anderson Bell MD Vital Signs No data available for this section Problem List No data available for this section Allergies, Adverse Reactions, Alerts Substance Reaction Severity Status NKDA Active Medications No data available for this section Results No data available for this section Immunizations No data available for this section Procedures No data available for this section Social History No data available for this section Assessment and Plan No data available for this section
--- OUTSIDE RECORDS SUMMARY | 2018-07-03 12:53 | XMS REPORT | Summary of Care ---
Author Author [facility] Address Unknown Phone Unavailable Encounter HQ Encntr_alias(FIN) [id number] Date(s): 02/14/17 - 02/14/17 [facility] Outpatient Imaging [id number] [place] [phone] Discharge Disposition: Home or Self Care Attending Physician: Kallie Rivera MD Vital Signs No data available for this section Problem List Condition Effective Dates Status Health Status Informant Arthritis(Confirmed) Resolved Diabetes(Confirmed) Resolved Hypertension(Confirm Resolved ed) Neuropathy(Confirmed Resolved ) Allergies, Adverse Reactions, Alerts Substance Reaction Severity Status NKDA Active Medications No data available for this section Results No data available for this section Immunizations Not Given Vaccine Date Status Refusal [...] Smoking Cessation Counseling No Assessment and Plan No data available for this section
--- OUTSIDE RECORDS SUMMARY | 2018-07-03 12:53 | XMS REPORT | Summary of Care ---
Author Organization Unknown Address Unknown Phone Unavailable Encounter HQ Encntr_alias(FIN) [id number] Date(s): 04/11/14 - 05/10/14 [facility] Discharge Disposition: Home Physician Attending: Anderson Bell [...]
--- OUTSIDE RECORDS SUMMARY | 2018-07-03 12:53 | XMS REPORT | Summary of Care ---
Author Author Krystin Yi, [facility] Unknown Address Unknown Phone Unavailable Care Team Providers Care Fisher Terrapin Name Role Phone JARRET Weeks, GM Unavailable Unavailable GEN MARTINEZ M.D., TAB Unavailable Unavailable CHRISTY Weeks, ABBI Unavailable Unavailable TRACY BRAGG, NORMAN FERMIN Unavailable Unavailable CHRISTY BARON MD SC, ABBI Capps Unavailable Unavailable DELMY BRAGG, JEREMIAS Miner Unavailable Unavailable Unavailable Unavailable Functional Status Name Dates Details Functional status health issues are not documented Status: Name Dates Details Cognitive status health issues are not documented Status: Problems Name Dates Details Bilateral leg edema (782.3, R60.0) Status: Active PVD (peripheral vascular disease) (443.9, I73.9) Status: Active Hypertension (401.9, I10) Status: Active Hyperlipidemia (272.4, E78.5) Status: Active Gastroesophageal reflux disease, esophagitis presence not specified (530.81, K21.9) Status: Active Diabetes (250.00, E11.9) Status: Active Medications Name Dates Details Lantus SoloStar 100 UNIT/ML Subcutaneous Solution Pen-injector INJECT SUBCUTANEOUSLY DIRECTED. * Start : 13-Dec-2016 Active 3 ML Pen glyBURIDE-metFORMIN 5-500 MG Oral Tablet TAKE 2 TABLET TWICE DAILY. * Refills: 0 * Start : 13-Dec-2016 Active Lyrica 100 MG Oral Capsule PRN * Refills: 0 * Start : 13-Dec-2016 Active Naproxen 500 MG Oral Tablet PRN * Refills: 0 * Start : 13-Dec-2016 Active NIFEdipine ER 30 MG Oral Tablet Extended Release 24 Hour TAKE 1 TABLET TWICE DAILY * Quantity: 180 Refills: 1 GM WHEAT M.D. * Start : 13-Dec-2016 Active Carvedilol 25 MG Oral Tablet TAKE 1 TABLET TWICE DAILY. * Quantity: 180 Refills: 1 GM WHEAT M.D. * Start : 13-Dec-2016 Active Aspirin EC Low Dose 81 MG Oral Tablet Delayed Release TAKE 1 TABLET DAILY DIRECTED. * Refills: 1 * Start : 13-Apr-2017 Active Furosemide 20 MG Oral Tablet TAKE 1 TABLET BY MOUTH EVERY MORNING * Quantity: 30 Refills: 0 GM WHEAT M.D. * Start : 12-Jun-2018 Active Losartan Potassium 50 MG Oral Tablet TAKE 1 TABLET TWICE DAILY * Quantity: 180 Refills: 1 GM WHEAT M.D. * Start : 05-Dec-2017 Active Pantoprazole Sodium 40 MG Oral Tablet Delayed Release TAKE 1 TABLET DAILY. * Refills: 0 * Start : 05-Dec-2017 Active 7 Tablet Bottle Pravastatin Sodium 40 MG Oral Tablet TAKE 1 TABLET AT BEDTIME. * Refills: 6 TAB KAMARA M.D. * Start : 21-May-2018 Active 90 Tablet Bottle Allergies and Adverse Reactions Name Dates Details No Known Drug Allergies (Allergy) Status: Active Past Medical History Name Dates Details Diabetes (250.00, E11.9) Status: Active Hypertension (401.9, I10) Status: Active History of stroke (V12.54, Z86.73) Status: Resolved Procedures Procedure Dates Details History of Carpal tunnel surgery Completed History of Knee surgery Completed History of Ankle surgery Completed Immunization Name Dates Details Immunizations not documented Family History Name Dates Details Family history of cardiac disorder (V17.49, Z82.49) Comments: Family History Status: Active Family history of diabetes mellitus (V18.0, Z83.3) Comments: Family History Status: Active Social History Name Dates Details Unknown if ever smoked Vital Signs Date Test Result Details No Known Vitals to report Results Date Description Value Details Results not documented Plan of Care Name Dates Details Planned Observations Planned Goals not documented Planned Encounters Appointment; ABBI HARRISON M.D. On: 17-Jul-2018 12:15 Appointment; GM WHEAT M.D. On: 26-Nov-2018 9:45 Instructions Name Dates Details Instructions not documented Encounters Appointment; GM WHEAT M.D. Encounter Diagnosis: Problem not documented On: 13-Dec-2016 11:10 Appointment; GM WHEAT M.D. Encounter Diagnosis: Problem not documented On: 21-Feb-2017 8:40 Appointment; SE, NUCLEAR Encounter Diagnosis: Problem not documented On: 07-Mar-2017 7:30 Appointment; SE, ECHO Encounter Diagnosis: Problem not documented On: 07-Mar-2017 7:45 Appointment; GM WHEAT M.D. Encounter Diagnosis: Problem not documented On: 13-Apr-2017 9:10 Appointment; GM WHEAT M.D. Encounter Diagnosis: Problem not documented On: 25-Apr-2017 11:00 Appointment; TAB KAMARA M.D. Encounter Diagnosis: Problem not documented On: 01-May-2017 15:00 Appointment; GM WHEAT M.D. Encounter Diagnosis: Problem not documented On: 30-May-2017 9:30 Appointment; TAB KAMARA M.D. Encounter Diagnosis: Problem not documented On: 27-Jun-2017 14:40 Appointment; TAB KAMARA M.D. Encounter Diagnosis: Problem not documented On: 28-Jul-2017 13:00 Appointment; TAB KAMARA M.D. Encounter Diagnosis: Problem not documented On: 02-Aug-2017 14:30 Appointment; TAB KAMARA M.D. Encounter Diagnosis: Problem not documented On: 04-Aug-2017 13:00 Appointment; TAB KAMARA M.D. Encounter Diagnosis: Problem not documented On: 09-Aug-2017 14:00 Appointment; SE, VENOUS Encounter Diagnosis: Problem not documented On: 06-Oct-2017 14:00 Appointment; SE, VENOUS Encounter Diagnosis: Problem not documented On: 11-Oct-2017 14:30 Appointment; TAB KAMARA M.D. Encounter Diagnosis: Problem not documented On: 06-Nov-2017 15:00 Appointment; GM WHEAT M.D. Encounter Diagnosis: Problem not documented On: 05-Dec-2017 9:10 Appointment; ABBI HARRISON M.D. Encounter Diagnosis: Problem not documented On: 01-May-2018 10:00 Appointment; GM WHEAT M.D. Encounter Diagnosis: Problem not documented On: 21-May-2018 9:15 Appointment; ABBI HARRISON M.D. Encounter Diagnosis: Problem not documented On: 05-Jun-2018 11:30 Appointment; ABBI HARRISON M.D. Encounter Diagnosis: Problem not documented On: 26-Jun-2018 9:30
--- NOTE | 2018-07-03 13:22 | Diagnostic Imaging Report ---
EXAMINATION: Head CT HISTORY: Left-sided weakness, left facial numbness and tongue numbness for the last 45 minutes. Evaluate for acute stroke. COMPARISON: None. TECHNIQUE: Multidetector axial images were obtained without contrast from the foramen magnum to the vertex . The images were reconstructed using brain and bone algorithms. Thin section brain images were reformatted into coronal and sagittal planes. Image quality: Motion/streaking artifact limits the evaluation of the skull base and posterior cranial fossa. Dose modulation, iterative reconstruction, and/or weight based adjustment of the mA/kV was utilized to reduce the radiation dose to as low as reasonably achievable. FINDINGS: Parenchyma: 1. Subtle hypodensity in the left thalamus and posterior limb of the right internal capsule may correspond to age-indeterminate ischemic lacunar infarcts. Otherwise no areas of abnormal density in the brain parenchyma. 2. No mass or hemorrhage. No CT evidence of acute territorial vascular insult. Extra-axial spaces:No abnormal density. No extra-axial fluid collections Brain volume: Normal for age. Ventricles: Mildly prominent without definite hydrocephalus, likely ex vacuo compensatory dilatation. Arteries: No density suggestive of thrombus. Dural sinuses: No abnormal density. Extra-axial spaces: No abnormal density. Foramen magnum: No mass, Chiari malformation, or basilar invagination. Sella: No obvious mass. Paranasal/mastoid sinuses: Imaged portions unremarkable. Skull/Scalp: No lytic or blastic lesions. No fractures. IMPRESSION: 1. No acute intracranial hemorrhage or cortical infarcts. 2. Tiny age-indeterminate lacunar infarct in the left thalamus and possibly posterior limb of the right internal capsule. If clinical concern remains for acute infarction, a brain MRI is recommended for further evaluation. 3. Mild ventriculomegaly. Signed by: Dr. Lilia Fink M.D. on 07/03/2018 1:19 PM
[2018-07-03] MEDS ORDERED: SODIUM CHLORIDE 0.9% 1000ML 1,000 ML IV SCH (13:46)
--- OUTSIDE RECORDS SUMMARY | 2018-07-03 13:59 | XMS REPORT ---
Author [facility] Address Unknown Phone Unavailable Care Team Providers Care Stacker Operator Name Role Phone Adri NICOLE Unavailable Unavailable Problems This patient has no known problems. Allergies, Adverse Reactions, Alerts This patient has no known allergies or adverse reactions. Medications This patient has no known medications. Results Test Description Test Time Test Comments Text Results Atomic Results Result Comments CT BRAIN WO-[facility]OPD 2018-07-03 13:10:00 [place] [id number] [place] [id number] Patient Name: BRAD LOVE MR #: [id number] : 1955 Age/Sex: 63/M Req #: [id number] Adm Physician: Ordered by: KISHORE NICOLE MD Report #: [id number] Location: [facility] Room/Bed: Procedure: [id number] [facility] Ex[facility] Date: 07/03/18 Exam Time: 1300 REPORT STATUS: Signed EXAMINATION: Head CT HISTORY: Left-sided weakness, left facial numbness and tongue numbness for the last 45 minutes. Evaluate for acute stroke. COMPARISON: None. TECHNIQUE: Multidetector axial images were obtained without contrast from the foramen magnum to the vertex . The images were reconstructed using brain and bone algorithms. Thin section brain images were reformatted into coronal and sagittal planes. Image quality: Motio n/streaking artifact limits the evaluation of the skull base and posterior cranial fossa. Dose modulation, iterative reconstruction, and/or weight based adjustment of the mA/kV was utilized to reduce the radiation dose to as low as reasonably achievable. FINDINGS: Parenchyma: 1. Subtle hypodensity in the left thalamus and posterior limb of the right internal capsule may correspond to age-indeterminate ischemic lacunar infarcts. Otherwise no areas of abnormal density in the brain parenchyma. 2. No mass or hemorrhage. No CT evidence of acute territorial vascular insult. Extra-axial spaces:No abnormal density. No extra-axial fluid collections Brain volume: Normal for age. Ventricles: Mildly prominent without definite hydrocephalus, likely ex vacuo compensatory dilatation. Arteries: No density suggestive of thrombus. Dural sinuses: No abnormal density. Extra-axial spaces: No abnormal density. Foramen magnum: No mass, Chiari malformation, or basilar invagination. Sella: No obvious mass. Paranasal/mastoid sinuses: Imaged portions unremarkable. Skull/Scalp: No lytic or blastic lesions. No fractures. IMPRESSION: 1. No acute intracranial hemorrhage or cortical infarcts. 2. Tiny age-indeterminate lacunar infarct in the left thalamus and possibly posterior limb of the right internal capsule. If clinical concern remains for acute infarction, a brain MRI is recommended for further evaluation. 3. Mild ventriculomegaly. Signed by: Dr. Cristal Franks M.D. on 07/03/2018 1:19 PM Dictated By: CRISTAL FRANKS MD 131 Transcribed By: LEAH on 07/03/18 1310 COPY TO: KISHORE NICOLE MD
[2018-07-03] MEDS ORDERED: ONDANSETRON HCL INJ 2MG/ML 2ML 2 MG/ML VIAL IV PRN (14:00)
[2018-07-03] MEDS ORDERED: ASPIRIN 81 MG CHEW TAB PO ONE (14:00)
[2018-07-03] MEDS ORDERED: MORPHINE SULFATE INJ 4 MG/ML INJ 1ML IV PRN (14:15)
[2018-07-03] MEDS ORDERED: HYDROMORPHONE 2MG/ML 2 MG/ML ML IV PRN (14:15)
--- NOTE | 2018-07-03 14:23 | NUR ---
PT TO BE ADMITTED AND TRANSFERED, PT AND FAMILY AWARE OF POC.
--- NOTE | 2018-07-03 14:47 | NUR ---
[facility] CALLED FOR TRANSPORT, ETA 45 MINS
[2018-07-03 16:49] VITALS: BP 161/66
[2018-07-03 16:52] VITALS: BP 161/66
--- NOTE | 2018-07-03 16:59 | NUR ---
Patient received from [facility] via ambulance. see admit assess. sinus rhythm family at . vitals stable with no distress. no physical deficits or numbness noted at this time.
[2018-07-03] MEDS ORDERED: LANTUS 3ML100 UNITS/ SQ (17:04)
[2018-07-03] MEDS ORDERED: PANTOPRAZOLE SO40 MG PO (17:08)
[2018-07-03] MEDS ORDERED: GLYBURIDE5 MG PO (17:08)
[2018-07-03] MEDS ORDERED: PRAVACHOL40 MG PO (17:08)
[2018-07-03] MEDS ORDERED: METFORMIN HCL500 MG PO (17:08)
[2018-07-03 18:06] LABS: CREATINE KINASE MB 2.2 ng/mL (0-5.0)
[2018-07-03] MEDS: FLUTICASONE PROPIONATE NASAL SPRAY NS SCH (19:45)
[2018-07-03 20:00] VITALS: BP 182/79
--- NOTE | 2018-07-03 20:04 | History and Physical ---
PRIMARY CARE PHYSICIAN: Dr. Ilan Moreno. CHIEF COMPLAINT: Numbness on the left side of the face and arm. HISTORY OF PRESENT ILLNESS: Mr. Zendejas is a 63-year-old male, who presented to the emergency room with complaints of numbness and tingling on the left side of the face and arm, it was like his previous stroke, so he decided to come to the emergency room. He denies any chest pain. He is having left arm pain and left neck pain going on since yesterday with some nasal stuffiness as well. He denies any nausea, vomiting, diarrhea, or focal weakness. REVIEW OF SYSTEMS: GENERAL: Denies any fever or chills. HEAD: Denies any head trauma. ENT: Denies any earaches. CVS: Denies any chest pain. He has left arm pain. RESPIRATORY: Denies any shortness of breath. GI: Denies any nausea or vomiting. MUSCULOSKELETAL: Denies any arthralgias or myalgias. NEUROLOGIC: Denies any focal weakness. The rest of the review of systems are negative except as in HPI. PAST MEDICAL HISTORY: Hypertension and diabetes. PAST SURGICAL HISTORY: Knee replacement and ankle surgery. FAMILY AND SOCIAL HISTORY: Never smoked. Used to work for [employer] He lives with his . PHYSICAL EXAMINATION: VITAL SIGNS: Temperature 97.8, pulse of 73, blood pressure 187/87, and respiratory rate of 18. HEENT: Head is atraumatic, normocephalic. NECK: Supple. No JVD. Thyroid not enlarged. CHEST: Clear to auscultation bilaterally. No wheezing. HEART: S1, S2 audible. No murmurs, gallops, or rubs. ABDOMEN: Soft, nontender. EXTREMITIES: No clubbing, cyanosis, or edema. NEUROLOGIC: Awake and alert. LABS: Labs which were done at the free-standing ER shows sodium 142, potassium 4.3, BUN 11, and creatinine 1.0. White count of 5.0, hemoglobin 13.6, hematocrit 40.3, and platelets 230. ASSESSMENT: A 63-year-old male with left-sided arm pain and numbness, resolved now. CT head is negative, likely a transient ischemic attack. Current problems: 1. History of cerebrovascular accident. 2. Transient ischemic attack. 3. Hypertension. 4. Diabetes. PLAN: 1. Neurology consult. 2. Cardiology consult. 3. Resume home medications. 4. We will start the patient on Flonase and Claritin for nasal congestion. Discontinue the IV fluids. MD NEFTALY Herrera/KWASI /[id number]
[2018-07-03] MEDS ORDERED: DEXTROSE 50% SYRINGE 50 ML IV PRN (20:30)
[2018-07-03] MEDS: INSULIN REGULAR, HUMAN 100 UNIT/1 ML 3ML VIAL SQ SCH (21:00)
--- NOTE | 2018-07-03 21:47 | NUR ---
I called DR Milligan at 2109 through his answering service. Dr. Milligan called back at 2146. I stated the patient needed to take the following medications, and some of her medications were not renewed/continued. Amitriptyline 50mg qhs, Tizanidine 4mg QID prn Baclofen 10 mg QHS. Stated it was okay for the patient to take those medications. The patient brought her medications and prefers to take her own medication since she states "I am self pay, and do not want to pay for medications I already have". I will continue her medications. Addendum: 07/03/18 at 7153 by Chrissy Wilburn RN Wrong Patient.
[2018-07-03] MEDS: LORATADINE/PSEUDOEPHEDRINE 24 HR SR TAB PO SCH (21:52)
[2018-07-03] MEDS: SIMVASTATIN 20 MG TAB PO SCH (21:52)
[2018-07-03 23:28] LABS: CREATINE KINASE MB 1.9 ng/mL (0-5.0)
[2018-07-04] VITALS (7 sets, daily range): BP systolic 152–199; BP diastolic 71–90
--- NOTE | 2018-07-04 02:16 | Consultation ---
DATE OF CONSULTATION: 07/03/2018 Neurology Consult Note HISTORY OF PRESENT ILLNESS: Mr. Zendejas is a 63-year-old right-hand dominant man with past medical history significant for hypertension, hyperlipidemia, diabetes mellitus type 2, and a prior stroke with residual mild hemiparesis on the right, admitted to [facility] on July 03, 2018, with symptoms suspicious for a stroke. At approximately 1200 hours on the day of admission, the patient experienced a sudden onset of numbness affecting the left hand. Approximately 15 minutes later, the patient noted tingling affecting the lower face on the left side as well as a "thick tongue." Mr. Zendejas reports poor balance and dizziness, which is further described as an unsteady sensation as well. The patient does not report a new or worsening visual field cut or other disturbance, aphasia, facial droop, hemiparesis, or confusion. Mr. Zendejas's daughter does report mild dysarthria. Following the onset of the above symptoms, the patient notified his regarding his symptoms. His then brought him to a free-standing Emergency Center for further evaluation. Mr. Zendejas reports arriving to the emergency center within 1-hour of symptom onset. At the time of his arrival, his symptoms were beginning to improve. Mr. Zendejas reports his symptoms had resolved within 3 hours. While at the free-standing Emergency Center, the patient underwent a CT of the brain without contrast, which showed small age indeterminate lacunar infarcts in the left thalamus as well as the posterior limb of the right internal capsule. Further evaluation with an MRI of the brain without contrast was recommended. Therefore, Mr. Zendejas was transported to [facility] and admitted under observation status for further evaluation and treatment of his symptoms. Following his stroke in 2009, the patient was prescribed aspirin 325 mg by mouth daily for stroke prophylaxis. Within the past year or two, his pediatric orthodontist advised him to take aspirin 81 mg by mouth daily for stroke prophylaxis. Mr. Zendejas endorses compliance with his medication. REVIEW OF SYSTEMS: Dysarthria, tingling over the left side of the face, numbness of the left hand, impairment of balance and gait, dizziness which is further described as lightheadedness, "thick tongue," and left shoulder pain. Otherwise, a 12-point review of systems is negative. PAST MEDICAL HISTORY: Hypertension, hyperlipidemia, diabetes mellitus type 2, gastroesophageal reflux disease, prior stroke with residual mild right hemiparesis. PAST SURGICAL HISTORY: Right knee arthroscopy, repair of a torn tendon in the left ankle, bilateral carpal tunnel release, bilateral cataract removal, bilateral LASIK eye surgery, and colonoscopy. PAST HOSPITALIZATIONS: Surgeries/procedures as listed, stroke, gastrointestinal illness. FAMILY MEDICAL HISTORY: Hypertension, diabetes mellitus, coronary artery disease, and Alzheimer disease. SOCIAL HISTORY: Mr. Zendejas is . He is retired. The patient does not report current or prior tobacco or recreational drug use. The patient does report social alcohol use (beer). HOME MEDICATIONS: Aspirin 81 mg by mouth daily, pravastatin 40 mg by mouth daily, metformin 500 mg by mouth twice daily, glyburide 5 mg by mouth twice daily, Lantus 35 units subcutaneously at bedtime daily, Protonix 40 mg by mouth daily. This is not included on the patient's list of home medications, but Mr. Zendejas told me he takes losartan 50 mg by mouth daily for treatment of hypertension. ALLERGIES: NO KNOWN DRUG ALLERGIES. NO KNOWN FOOD ALLERGIES. NO KNOWN ALLERGIES TO LATEX. NO KNOWN ALLERGIES TO IODINE OR OTHER CONTRAST MATERIALS. PHYSICAL EXAMINATION: VITAL SIGNS: Height 70 inches, weight 225 pounds, BMI 32.3 kg/m2, blood pressure 167/77 mmHg, pulse 69 beats per minute, respiratory rate 18 breaths per minute, and oxygen saturation 97% on room air. GENERAL: The patient is awake and alert, does not appear distressed. Obese. HEENT: Normocephalic, atraumatic. Pupils are surgical. Moist mucous membranes. NECK: Supple. No appreciable thyromegaly. No appreciable carotid bruits. CARDIOVASCULAR: S1, S2, regular rate and rhythm. No murmurs, rubs, or gallops. RESPIRATORY: Clear to auscultation bilaterally. No wheezes, rhonchi, or rales. EXTREMITIES: The skin is warm and dry. No clubbing, cyanosis, or edema. The posterior tibial and dorsalis pedis pulses are 1+ and symmetric. SKIN: Venous stasis changes over the forelegs bilaterally. NEUROLOGIC: Memory/Attention: The patient is awake and alert, oriented to person, place, time, and situation. Cranial Nerves: Cranial nerve I - not tested. Cranial nerves II, III, IV, and - pupils are surgical. Extraocular movements intact. No nystagmus. Cranial nerve V - sensation to light touch and pinprick is intact in the bilateral V1 through V3 distributions. Strength in the temporalis and masseter muscles are within normal limits. Cranial nerve VII - the face is symmetric as are all facial movements. Strength is within normal limits. Cranial nerve VIII - hearing is intact to finger rub bilaterally. Cranial nerves IX, X - the soft palate elevates equally and symmetrically. Cranial nerve XI - normal strength of the bilateral sternocleidomastoid and trapezius muscles. Cranial nerve XII - the tongue protrudes midline and moves symmetrically from [id number]. Strength: Bulk is normal. Strength is 5/5 in the bilateral deltoids, biceps, triceps, wrist flexors and extensors, finger flexors and extensors, intrinsic hand muscles, hip flexors, knee flexors and extensors, ankle dorsiflexion and plantar flexion, and intrinsic foot muscles. Tone is normal. Deep tendon reflexes: Deep tendon reflexes are 2+ and symmetric at the triceps, biceps, brachioradialis, patella, and Achilles. Plantar responses are flexor bilaterally. Sensation: Sensation is intact to light touch and pinprick in both arms and both legs. Cerebellar: [id number]-[id number]-vtajji and heel-vaughn movements are intact without dysmetria or other impairment. Gait: Deferred. Speech: Spontaneous speech is normal without appreciable dysarthria or aphasia. Repetition is intact. Involuntary Movements: None. Pronator Drift: None. LABORATORY DATA: The only available laboratory data are cardiac enzymes as follows: Creatine kinase 206, CK-MB 2.20, and troponin I 0.009. DIAGNOSTIC STUDIES: Electrocardiogram on 07/03/2018: Normal sinus rhythm at [address] of the brain without contrast on 07/03/2018: On my review, there are age indeterminate lacunar infarcts in the left thalamus and possibly in the posterior limb of the right internal capsule. Cerebral volumes are appropriate for age. Their findings compatible with [id number] chronic small-vessel ischemic disease. ASSESSMENT AND PLAN: Mr. Zendejas is a 63-year-old right-hand dominant man with multiple vascular risk factors, admitted to [facility] on July 03, 2018, with a transient ischemic attack versus a small lacunar stroke in the subcortical right middle cerebral artery distribution. At present, the patient's neurological examination is nonfocal. His laboratory data and diagnostic studies have been reviewed and are documented above. The patient will undergo a complete stroke evaluation as follows: 1. A lipid panel and hemoglobin A1c will be ordered. 2. An echocardiogram will be ordered. 3. Bilateral carotid artery ultrasound with Doppler will be ordered. 4. MRI of the brain without contrast will be ordered. 5. Discontinue aspirin. The patient will be prescribed Plavix 75 mg by mouth daily for stroke prophylaxis. 6. Allow permissive hypertension for 24 to 48 hours, status post stroke. Antihypertensive medications will be held. Vital signs will be monitored per unit protocol. 7. The patient's goal total cholesterol is less than 200 with an LDL of less than 70. Follow up the results of the lipid panel. In the interim, the patient's home medication of pravastatin 40 mg by mouth at bedtime daily will be continued. 8. The patient's goal hemoglobin A1c is less than 7.0. Follow up the results of the hemoglobin A1c. In the interim, the patient's home medications of metformin and glyburide will be continued. The patient will be placed on sliding scale insulin. Tight glycemic control is recommended, while the patient is in the hospital. 9. Speech and Physical Therapy consultations will be deferred as the patient has no neurological deficits. 10. GI prophylaxis with Protonix 40 mg by mouth daily. DVT prophylaxis with Lovenox 40 mg subcutaneously daily. 11. Defer treatment of the remaining medical comorbidities to the primary and other services following the patient. 12. Anticipated disposition is home with no needs in 1 to 2 days. Thank you for this consultation. I will continue to follow the patient, while he remains in the hospital. TIME SPENT: 70 minutes. Soniya Mireles MD CP/KWASI /[id number] MTDGarima
[2018-07-04 05:50] LABS: BASOPHILS % 0.3 % (0.0-1.0); EOSINOPHILS # (AUTO) 0.1 (0.0-0.4); HEMATOCRIT 39.4 % (38.2-49.6); HEMOGLOBIN 13.3 g/dL (14.0-18.0); LYMPHOCYTES # (AUTO) 1.5 (1.0-3.2); LYMPHOCYTES % 25.5 % (18.0-39.1); MEAN CORPUSCULAR HEMOGLOBIN 31.5 pg (28-32); MEAN CORPUSCULAR HGB CONC 33.8 g/dL (31-35); MEAN CORPUSCULAR VOLUME 93.4 fL (81-99); MONOCYTES # (AUTO) 0.8 (0.2-0.8); MONOCYTES % 13.4 % (4.4-11.3); NEUTROPHILS # (AUTO) 3.5 (2.1-6.9); NEUTROPHILS % 58.3 % (38.7-80.0); PLATELET COUNT 237 x10e3/uL (140-360); RED BLOOD COUNT 4.22 x10e6/uL (4.3-5.7); RED CELL DISTRIBUTION WIDTH 12.7 % (11.7-14.4)
[2018-07-04 06:19] LABS: BLOOD UREA NITROGEN 12 mg/dL (7-26); BUN/CREATININE RATIO 14 (6-25); CALCIUM 9.3 mg/dL (8.4-10.2); CARBON DIOXIDE 28 mmol/L (22-29); CHLORIDE 103 mmol/L (98-107); CREATININE, SERUM 0.88 mg/dL (0.72-1.25); EST GLOMERULAR FILTRATION RATE > 60 ML/MIN (60-); GLUCOSE 84 mg/dL (74-118); SODIUM 139 mmol/L (136-145)
--- NOTE | 2018-07-04 06:35 | NUR ---
The patient is sitting up in bed watching TV. Reports sleeping very well last night, and feeling like the Claritin really helped clear his sinus. Denies pain at this time. bed low, wheels locked, and call light within reach.
[2018-07-04 06:51] LABS: CREATINE KINASE MB 1.7 ng/mL (0-5.0)
[2018-07-04] MEDS: INSULIN REGULAR, HUMAN 100 UNIT/1 ML 3ML VIAL SQ SCH ×4 (07:30→21:00)
--- NOTE | 2018-07-04 07:37 | NUR ---
elevated BP 180/90 (manual cuff) paged Dr Dietrich for orders, patient not in any distress, call light in reach
[2018-07-04 07:39] LABS: CHOL/HDL RATIO 3.9 (3.9-4.7)
[2018-07-04] MEDS: LOSARTAN POTASSIUM 100 MG TAB PO SCH ×2 (08:20→16:43)
[2018-07-04] MEDS ORDERED: LORAZEPAM 0.5 MG TAB PO ONE (08:30)
[2018-07-04] MEDS: METFORMIN HCL 500 MG TAB PO SCH ×2 (08:41→16:43)
[2018-07-04] MEDS: LORATADINE/PSEUDOEPHEDRINE 24 HR SR TAB PO SCH (08:41)
[2018-07-04] MEDS: CLOPIDOGREL BISULFATE 75 MG TAB PO SCH (08:41)
[2018-07-04] MEDS: PANTOPRAZOLE SOD 40 MG TABEC PO SCH (08:42)
[2018-07-04] MEDS: GLYBURIDE 5 MG TAB PO SCH ×2 (08:42→16:42)
[2018-07-04] MEDS ORDERED: ASPIRIN 325 MG TAB EC PO SCH (09:00)
[2018-07-04] MEDS: FLUTICASONE PROPIONATE NASAL SPRAY NS SCH ×2 (09:00→16:42)
--- NOTE | 2018-07-04 09:16 | NUR ---
Rechecked BP manually 140/70
[2018-07-04] MEDS ORDERED: ONDANSETRON HCL 4 MG ORAL DISINTEGRATING TAB PO PRN (10:00)
--- NOTE | 2018-07-04 10:20 | NUR ---
patient off the unit for MRI, Dr Brower had rounds
--- NOTE | 2018-07-04 11:42 | NUR ---
BP 185/80 , BP MED GIVEN, WILL RECHECK
--- NOTE | 2018-07-04 11:48 | Diagnostic Imaging Report ---
Exam: Brain MRI without IV contrast History: Left-sided weakness and facial numbness. Comparison studies: Head CT 07/03/2018. Technique: Sagittal and axial T2 FS, axial DWI, axial T2*GRE, axial T1 FLAIR and axial coronal T2 FLAIR. Intravenous contrast: None Findings: Scalp: Normal in signal. No masses. Bone marrow: Normal in signal intensity. Brain sulci: Mildly prominent. Ventricles: Mild compensatory dilatation. No hydrocephalus. Extra axial spaces: No mass, no fluid collection. Parenchyma: No mass, hemorrhage or acute ischemia. A small chronic lacunar infarct in the left thalamus corresponds to hypodensity seen on the prior CT. A few scattered T2 FLAIR hyperintense foci in the supratentorial white matter are nonspecific but most compatible with chronic microvascular ischemic changes. Suprasellar region: No abnormalities. Craniocervical junction: Patent foramen magnum. No Chiari malformation. Vessels: Normal flow-voids in the arteries and sinuses. Incidental findings: Lens replacements for previous cataract surgery. Mild T2 hyperintense inflammatory changes in the bilateral ethmoids and maxillary sinuses. IMPRESSION: 1. No acute ischemia. 2. Mild generalized cerebral volume loss. 3. Small chronic left thalamic lacunar infarct. 4. Mild chronic microvascular ischemic changes. Signed by: Dr. Familia Robles M.D. on 07/04/2018 11:45 AM
[2018-07-04] MEDS: CARVEDILOL 12.5 MG TAB PO SCH ×2 (11:49→16:43)
--- NOTE | 2018-07-04 15:55 | Consultation ---
DATE OF CONSULTATION: 07/04/2018 Cardiac Consultation REASON FOR CONSULTATION: CVA. HISTORY OF PRESENT ILLNESS: This is a 63-year-old gentleman who has known significant medical history of hypertension, hyperlipidemia, diabetes mellitus, and prior CVA of the right body side almost eight or nine years ago. "My stroke at that time was seen by far much more than this stroke." The patient came to this emergency room complaining of tingling and numbness of the left body side as well as thick tongue. His CT scan showed evidence of CVAs in the left thalamus and the right internal capsule. The patient's thick tongue feeling is better today and he is still having tingling and numbness of the left body side and the left face. The patient denied having any angina, denied having any palpitation or any other symptoms to suggest atrial fibrillation or atrial arrhythmias. The patient's cardiac symptoms are easy fatigability, shortness of breath on exertion class II, no angina. He is seen and followed by his firebreak cutter and he saw him almost few months back for hypertension management and he does not have "any blocked arteries." The patient's main symptoms were neurological as described above affecting the left body side and left face and the tongue and the tongue is better today. REVIEW OF SYSTEMS: Extensive to all systems. Only pertinent positive and negative form will be summarized for clarity. GENERAL: No fever, no chills. HEENT: Numbness of the face and tingling of the tongue which is better. PULMONARY: Moderate shortness of breath on exertion. No pleuritic, no cough. CARDIAC: No angina. No palpitation. Moderate shortness of breath on exertion. Possible sleep apnea. No orthopnea, no paroxysmal nocturnal dyspnea. GI: No hematemesis. No melena. GERD like symptoms at time. : Increased frequency of urination. No hematuria. No dysuria. MUSCULOSKELETAL: Knees pain, back pain, but "as usual." HEMATOLOGY: No easy bruising or bleeding. NEUROLOGICAL: Prior CVA affecting the right body and today admission symptoms as per above. OTHERS: Diabetes mellitus under good control. PAST MEDICAL HISTORY: 1. Hypertension since age 45. 2. Diabetes mellitus, also since age 45. 3. Hyperlipidemia. 4. GERD. 5. Prior CVA affecting the right body side. 6. Right knee arthroscopic surgery. 7. Left ankle surgery. 8. Bilateral carpal tunnel surgery. 9. Bilateral cataract surgery. 10. Bilateral LASIK eye surgery. 11. Colonoscopy. FAMILY HISTORY: Father at age 77, he was diabetic, hypertensive, he had bypass surgery at younger age. Mother at age 83, again she got the same problem as well as bypass surgery. No brother. Two sisters, one sister who is skinny, hypertensive, nondiabetic, already had bypass surgery at age 55. Four siblings, one son and three daughters, they are all healthy. HOME MEDICATIONS: Aspirin 81 mg a day, pravastatin 40 mg a day, losartan 100 mg a day, Coreg questionable dose one tablet twice a day, metformin 500 mg twice a day, glyburide 5 mg twice a day, Lantus insulin 55 units a day, Protonix 40 mg a day. ALLERGIES: NONE. PHYSICAL EXAMINATION: VITAL SIGNS: Height of 5 feet 10 inches, weight of 225 pounds. Blood pressure is 190/90, heart rate of 70, respiratory rate of 18. HEENT: Pupils are reactive. NECK: No elevation of jugular venous pulsation. No bruit. CHEST: Clear to auscultation and percussion. HEART: PMI in 5th intercostal space. Normal first and second heart sound. ABDOMEN: Obese. No organomegaly. No abdominal bruits. EXTREMITIES: Venous stasis changes were noted. Decrease of pulses in both feet at +1. No edema. NEUROLOGIC: Awake, alert, oriented. His strength seems to be equal in both arms to me; however, I would defer to the neurologist exam. LABORATORY DATA: Sodium of 139, potassium of 4, BUN of 12, creatinine of 0.9. White blood cell count of 6000, hemoglobin of 13.3, hematocrit 39%, platelet count of 237,000. EKG showed no acute changes. Lipid profile showed a triglyceride of 153, total cholesterol of 136 with HDL 35, LDL 70. CT head showed right internal capsule CVA and left thalamus CVA. IMPRESSION AND PLAN: 1. Admission with cerebrovascular accident affecting the left body side, most likely related to the right internal capsule finding on the CT scan. 2. Prior cerebrovascular accident in 2009 or so. 3. Hypertension of many years' duration. 4. Diabetes mellitus since age 45. 5. Hyperlipidemia. 6. Obesity. 7. Possible sleep apnea. 8. Diabetes mellitus with complication. Cardiac kang my recommendation will be as follow, 1. The patient already started on antiplatelet in form of Plavix by neurologist, which is good choice. 2. Gentle blood pressure control, we will resume his losartan, we will resume his Coreg, but we will aim to keep his systolic 150. 3. We would refuse echocardiogram and carotid Dopplers which were ordered. I understand the patient is on his way also to have MRI. Lipid profile seems to be reasonable, so we will continue his statin. We will follow this patient's progression with you and would like to thank you for your kind referral. MD NIKKI Alonzo/MODL /[id number]
[2018-07-04] MEDS ORDERED: CARVEDILOL 12.5 MG TAB PO SCH (17:00)
[2018-07-04] MEDS ORDERED: ENOXAPARIN SOD INJ 40 MG/0.4 ML SYR SC SCH (17:00)
--- NOTE | 2018-07-04 18:50 | NUR ---
Got report from previous nurse. Call light within reach. Patient in bed. Family at bedside.
[2018-07-04] MEDS: SIMVASTATIN 20 MG TAB PO SCH (21:35)
--- NOTE | 2018-07-04 21:51 | NUR ---
Called and talked to Dr. Dietrich about patient requesting to have Claritin D tonight. Dr. Dietrich approved and ordered that the patient can have the Claritin D.
[2018-07-04] MEDS ORDERED: LORATADINE/PSEUDOEPHEDRINE 24 HR SR TAB PO SCH (21:55)
[2018-07-05] VITALS: BP 183/79
[2018-07-05 04:00] VITALS: BP 161/78
--- NOTE | 2018-07-05 07:11 | NUR ---
Gave report to oncoming nurse. Patient in bed. Call light within reach.
--- NOTE | 2018-07-05 07:20 | NUR ---
patient resting in bed. AAOx3, Not in any distress
[2018-07-05 07:38] VITALS: BP 130/58
[2018-07-05] MEDS: INSULIN REGULAR, HUMAN 100 UNIT/1 ML 3ML VIAL SQ SCH (07:45)
[2018-07-05] MEDS: GLYBURIDE 5 MG TAB PO SCH (08:10)
[2018-07-05] MEDS: FLUTICASONE PROPIONATE NASAL SPRAY NS SCH (08:11)
[2018-07-05] MEDS: PANTOPRAZOLE SOD 40 MG TABEC PO SCH (08:11)
[2018-07-05] MEDS: METFORMIN HCL 500 MG TAB PO SCH (08:11)
[2018-07-05] MEDS: CLOPIDOGREL BISULFATE 75 MG TAB PO SCH (08:13)
[2018-07-05] MEDS: CARVEDILOL 12.5 MG TAB PO SCH (08:13)
[2018-07-05] MEDS: LOSARTAN POTASSIUM 100 MG TAB PO SCH (08:13)
[2018-07-05] MEDS ORDERED: COREG12.5 MG PO ×2 (09:35→11:04)
[2018-07-05] MEDS ORDERED: PLAVIX75 MG PO ×2 (09:35→11:04)
[2018-07-05] MEDS ORDERED: COZAAR100 MG PO (09:35)
[2018-07-05] MEDS ORDERED: LOSARTAN POTAS100 MG PO (11:04)
[2018-07-05 11:28] VITALS: BP 167/78
--- NOTE | 2018-07-05 11:46 | NUR ---
patient discharged home, AAOX3, Denies any SOB or Chest pain, prescription given patient verbalized understanding, IV canula removed with tip intact, no ss of infiltration noted. tele box returned, daughter at bed side to give ride, not in any distress, transported via to [facility]
[2018-07-05] MEDS ORDERED: LORATADINE/PSEUDOEPHEDRINE 24 HR SR TAB PO SCH (21:00)
--- NOTE | 2018-07-06 04:59 | Discharge Summary ---
FINAL DIAGNOSES: 1. Transient ischemic attack. 2. Hypertension. 3. History of stroke. 4. Diabetes mellitus. ADMISSION HISTORY AND HOSPITAL COURSE: Mr. Zendejas is a 63-year-old male presented with numbness and tingling on the left side of the face and arm. He had a history of stroke, felt like the stroke is coming, so he came to the emergency room. CT head was negative initially. Neurology was consulted. Dr. Mireles evaluated the patient. The MRI was done, which did not show any acute stroke. The patient was continued on home medication. Coreg was added. Cardiology was consulted. Dr. Brower evaluated the patient and recommended to start on Coreg. He will be discharged home to follow up with his primary care physician. MD NEFTALY Herrera/KWASI /[id number]
== END 2018-07-05 11:45 | disposition home or self-care (01) ==
LOC: FSED 12:49 → INTOOBSV 13:50 → ERHOLD 13:50 → IMCU 16:33
PROVIDERS: ADMIT Internal Medicine; ATTEND Internal Medicine
DX: G45.9 Transient cerebral ischemic attack, unspecified (principal); I10 Essential (primary) hypertension; E11.9 Type 2 diabetes mellitus without complications; E78.5 Hyperlipidemia, unspecified; E66.9 Obesity, unspecified; Z83.3 Family history of diabetes mellitus; Z82.49 Family history of ischemic heart disease and other diseases of the circulatory system; I69.351 Hemiplegia and hemiparesis following cerebral infarction affecting right dominant side; K21.9 Gastro-esophageal reflux disease without esophagitis; Z79.4 Long term (current) use of insulin; Z68.32 Body mass index [BMI] 32.0-32.9, adult
CPT/HCPCS: 36415 ×3; 70450; 70551; 80048; 80053; 80061; 81003; 82550 ×2; 82553 ×2; 82948 ×3; 83036; 84484 ×2; 85025 ×2; 93005; 93306; 93880; 99284; G0378 ×3; J1650; J1817; J7030; S0164 ×2

== ENCOUNTER → 2018-08-08 | Outpatient (CLI) | payer MEDICARE, BC ==
[~2018-08-08] MED LIST: COREG12.5 MG PO; COZAAR100 MG PO; GLYBURIDE5 MG PO; LANTUS 3ML100 UNITS/ SQ; LOSARTAN POTAS100 MG PO; METFORMIN HCL500 MG PO; PANTOPRAZOLE SO40 MG PO; PLAVIX75 MG PO; PRAVACHOL40 MG PO
--- NOTE | 2018-08-08 19:08 | Diagnostic Imaging Report ---
Solid-phase gastric emptying study Reason for examination: GERD; epigastric pain The protocol used for this study is based on the Consensus Recommendations for Gastric Scintigraphy by the [employer] and the Society of [employer]. Clinical information: The patient is diabetic; blood sugar this morning was 185 mg/dL. The patient has not had previous gastrointestinal surgery. The patient is not on any medications expected to affect gastric motility. The patient has been fasting for at least 6 hours prior to this exam. Radiopharmaceutical: Tc-99m sulfur colloid 1 mCi Report: The radiopharmaceutical was added to 1/2 cup egg whites that were then prepared and served with 2 pieces of white bread toasted, 30 grams of jam and 4 ounces of water. The patient took the meal orally without difficulty. Images were obtained of the abdomen in the anterior and posterior projections at 10 minutes post the meal and at 1and 2 hours. Uptake was determined from the geometric mean of the anterior and posterior counts and the counts were corrected for decay of the radiolabel. The percent gastric retention of the labeled meal at: 1 hour was 26% (normal 30-90%) 2 hours was 2% (normal <60%) 3-hour and 4-hour measurements were not obtained because the gastric retention was less than 10% at 2 hours. Impression: Rapid rate of gastric emptying. Scan findings do not support the clinical diagnosis of gastroparesis. Signed by: Dr. Puja Pickard M.D. on 08/08/2018 7:04 PM
== END ==
LOC: NM 08:26
PROVIDERS: ATTEND Internal Medicine Gastroenterology
DX: R10.13 Epigastric pain (principal); R12 Heartburn; E11.9 Type 2 diabetes mellitus without complications; I10 Essential (primary) hypertension; E66.9 Obesity, unspecified; Z71.3 Dietary counseling and surveillance
CPT/HCPCS: 78264; A9541

== ENCOUNTER → 2018-08-23 | Day surgery (SDC) | payer MEDICARE, BC ==
[2018-08-21 16:32] LABS: BASOPHILS % 0.6 % (0.0-1.0); EOSINOPHILS # (AUTO) 0.1 (0.0-0.4); EOSINOPHILS % 1.6 % (0.0-6.0); HEMATOCRIT 33.7 % (38.2-49.6); HEMOGLOBIN 11.8 g/dL (14.0-18.0); LYMPHOCYTES # (AUTO) 1.4 (1.0-3.2); LYMPHOCYTES % 27.2 % (18.0-39.1); MEAN CORPUSCULAR HEMOGLOBIN 32.2 pg (28-32); MEAN CORPUSCULAR VOLUME 91.8 fL (81-99); MONOCYTES # (AUTO) 0.6 (0.2-0.8); MONOCYTES % 11.7 % (4.4-11.3); NEUTROPHILS # (AUTO) 2.8 (2.1-6.9); NEUTROPHILS % 57.3 % (38.7-80.0); PLATELET COUNT 231 x10e3/uL (140-360); RED BLOOD COUNT 3.67 x10e6/uL (4.3-5.7); RED CELL DISTRIBUTION WIDTH 12.6 % (11.7-14.4)
[~2018-08-23] MED LIST changes: +FENTANYL CITRATE/PF 100MCG/2 ML INJ ONE; +NIFEDIPINE ER30 M1 PO; +PROPOFOL IV EMULSION 10 MG/ML 50 ML VIAL ONE; +VIT B12 PO; +VIT C PO
--- OUTSIDE RECORDS SUMMARY | 2018-08-23 05:32 | XMS REPORT | Continuity of Care Document ---
Author Author [facility] [address] [facility] Interface Address Unknown Phone Unavailable Problems Problem Status Onset Date Classification Date Reported Comments Source Epigastric pain 12/01/2017 06/16/2018 [facility] DIAC Active 11/27/2017 [facility] ABD PAIN Active 01/05/2017 [facility] Arthritis Resolved Problem 06/16/2018 [facility] Diabetes Resolved Problem 06/16/2018 [facility] Hypertension Resolved Problem 06/16/2018 [facility] Neuropathy Resolved Problem 06/16/2018 [facility] Carpal tunnel syndrome Resolved Problem 06/16/2018 [facility] Cataract Resolved Problem 06/16/2018 [facility] Stroke Resolved Problem 06/16/2018 [facility] Depression Resolved Problem 06/16/2018 [facility] Erectile dysfunction due to arterial insufficiency Resolved Problem 06/16/2018 [facility] Claudication Resolved Problem 06/16/2018 [facility] Obesity Resolved Problem 06/16/2018 [facility] Unspecified osteoarthritis, unspecified site Resolved Problem 06/16/2018 [facility] Sleep apnea Resolved Problem 06/16/2018 [facility] Testicular hypofunction Resolved Problem 06/16/2018 [facility] Other dorsalgia Resolved Problem 06/16/2018 [facility] Transient ischemic attack Active Problem 07/05/2018 [facility] RT HIP PAIN Active [facility] [place] EPIGASTRIC PAIN Active [facility] Medications Medication Details Route Status Patient Instructions Ordering Provider Order Date Source Metronidazole 500 MG Oral Tablet [Flagyl] 500 mg=1 tab, PO, Q8H, X 5 day, # 15 tab, 0 Refill(s) Active 01/06/2017 [facility] Amlodipine 10 mg, 2 tab, Route: PO, Drug form: TAB, Daily, Dosing Weight 102.273, kg, Start date: 01/06/17 9:00:00 CDT, Duration: 30 day, Stop date: 02/04/17 9:00:00 CSTNotes: (Same as: Norvasc) Inactive 01/06/2017 [facility] Docusate 100 mg, 1 cap, Route: PO, Drug form: CAP, BID, Dosing Weight 102.273, kg, Start date: 01/06/17 9:00:00 CDT, Duration: 30 day, Stop date: 02/04/17 17:00:00 CSTNotes: (Same as: Colace) (Do Not Crush) Inactive 01/06/2017 [facility] influenza virus vaccine, inactivated 0.5 mL, Route: IM, Drug Form: SUSP, Daily, Start date: 01/06/17 9:00:00 CDT, Duration: 1 doses or times, Stop date: 01/06/17 9:00:00 CDTNotes: (Same as: Fluzone Quadrivalent, Fluarix Quadrivalent) For 3 years of age and older (0.5 mL IM) Shake well before use Inactive 01/06/2017 [facility] Fluticasone propionate 0.05 MG/ACTUAT Metered Dose Nasal [place] [Flonase] 2 spray, Route: Each Affected Nostril, Drug Form: SPRY, Dosing Weight 102.273, kg, Daily, PRN Nasal Congestion, Start date: 01/06/17 0:22:00 CDT, Duration: 30 day, Stop date: 02/05/17 0:21:00 CSTNotes: (Same as: Flonase) Inactive 01/06/2017 [facility] Fluticasone propionate 0.05 MG/ACTUAT Metered Dose Nasal [place] [Flonase] 2 spray, Route: Each Affected Nostril, Drug Form: SPRY, Dosing Weight 102.273, kg, Q6H, PRN Nasal Congestion, Start date: 01/05/17 23:55:00 CDT, Duration: 30 day, Stop date: 02/04/17 23:54:00 CSTNotes: (Same as: Flonase) No Longer Active 01/06/2017 [facility] Insulin Lispro 6 unit, 0.06 mL, Route: [...] days from Date No Longer Active 01/06/2017 [facility] Dextrose 50% Syringe 25 gm, 50 mL, Route: IVP, Drug Form: INJ, Dosing Weight 102.273, kg, PRN, PRN Blood Glucose Results, Start date: 01/05/17 23:25:00 CDT, Duration: 30 day, Stop date: 02/04/17 22:24:00 TUGGER OPERATOR No Longer Active 01/06/2017 [facility] Glucagon 1 mg, Route: IM, Drug form: PDR/INJ, PRN, Dosing Weight 102.273, kg, PRN Blood Glucose Results, Start date: 01/05/17 23:25:00 CDT, Duration: 30 day, Stop date: 02/04/17 22:24:00 TUGGER OPERATOR No Longer Active 01/06/2017 [facility] Ondansetron 4 mg, Route: IV, Q6H, Dosing Weight 102.273, kg, PRN, Start date: 01/05/17 21:25:00 CDT, Duration: 30 day, Stop date: 02/04/17 21:24:00 TUGGER OPERATOR, Nausea and Vomiting Inactive 01/06/2017 [facility] Morphine 4 mg, 1 mL, Route: IV, Drug form: SOLN, Q6H, Dosing Weight 102.273, kg, PRN Pain Score 6-10, Start date: 01/05/17 21:25:00 CDT, Duration: 30 day, Stop date: 02/04/17 21:24:00 TUGGER OPERATOR, PainNotes: (Same as:MORPhine Sulfate) No Longer Active 01/06/2017 [facility] Vancomycin 1.25 gm, 250 mL, Route: IV, Drug form: INJ, [id number], Dosing Weight 84.091, kg, Start date: 01/05/17 20:00:00 CDT, Duration: 30 day, Stop date: 02/04/17 8:00:00 TUGGER OPERATOR, ABX Indication: Intra-abdominal Infec tionNotes: TIME CRITICAL MEDICATION Same as: Vancocin-NS (premixed) Infusion rate 2001 mg: infuse over 2.5 hours No Longer Active 01/06/2017 [facility] Flagyl 500 mg, 100 mL, Route: IVPB, Drug form: INJ, ABXQ8H, Dosing Weight 84.091, kg, Start date: 01/05/17 18:00:00 CDT, Duration: 5 day, Stop date: 01/10/17 10:00:00 CDT, ABX Indication: Intra-abdominal Infec tionNotes: (Same as: Flagyl) Avoid alcohol. No Longer Active 01/05/2017 [facility] cefepime 1 gm, Route: IVPB, ABXQ8H, Dosing Weight 84.091, kg, (CrCl >/=50 ml/min), Start date: 01/05/17 18:00:00 CDT, Duration: 5 day, Stop date: 01/10/17 10:00:00 CDT, ABX Indication: Intra-abdominal InfectionNotes: (Same As: Maxipime) MEDICATION WASTE Product Size: 1000 mg Product Wasted: ___ mg No Longer Active 01/05/2017 [facility] Vancomycin 1 ea, Route: MISC, ONCALL, Dosing Weight 84.091, kg, Start date: 01/05/17 18:00:00 CDT, day, Stop date: 01/05/17 18:00:00 CDT, Pharmacy to dose, ABX Indication: Intra-abdominal Infection Inactive 01/05/2017 [facility] Glucagon 1 mg, Route: IM, Drug form: PDR/INJ, PRN, Dosing Weight 102.273, kg, PRN Blood Glucose Results, Start date: 01/05/17 17:28:00 CDT, Duration: 30 day, Stop date: 02/04/17 16:27:00 TUGGER OPERATOR No Longer Active 01/05/2017 [facility] Dextrose 50% Syringe 12.5 gm, 25 mL, Route: IVP, Drug Form: INJ, Dosing Weight 102.273, kg, PRN, PRN Blood Glucose Results, Start date: 01/05/17 17:28:00 CDT, Duration: 30 day, Stop date: 02/04/17 16:27:00 TUGGER OPERATOR No Longer Active 01/05/2017 [facility] sodium chloride 0.9% 1000 ml INJ 1,000 mL 1,000 mL, Rate: 125 ml/hr, Infuse over: 8 hr, Route: IV, Dosing Weight 102.273 kg, Total Volume: 1,000, Start date: 01/05/17 17:27:00 CDT, Duration: 30 day, Stop date: 02/04/17 17:26:00 TUGGER OPERATOR No Longer Active 01/05/2017 [facility] Ondansetron 4 mg, 2 mL, Route: IVP, Drug form: INJ, Q6H, Dosing Weight 102.273, kg, PRN Nausea & Vomiting, Start date: 01/05/17 17:26:00 CDT, Duration: 30 day, Stop date: 02/04/17 17:25:00 CSTNotes: (Same as: Zofran) MEDICATION WASTE Product Size: 4 mg Product Wasted: ___ mg No Longer Active 01/05/2017 [facility] Acetaminophen 650 mg, 2 tab, Route: PO, Drug form: TAB, Q4H, Dosing Weight 102.273, kg, PRN Pain 1-3/Temp > 100.4 F, Start date: 01/05/17 17:26:00 CDT, Duration: 30 day, Stop date: 02/04/17 17:25:00 CSTNotes: Do not exceed 4 gm/day. (Same as: Tylenol) No Longer Active 01/05/2017 [facility] Zosyn 3.375 gm, Route: IVPB, Drug form: PDR/INJ, ABXQ8H, Dosing Weight 84.091, kg, CrCl >=20 ml/min infuse over 4 hours, Priority: STAT, Start date: 01/05/17 17:03:00 CDT, Duration: 5 day, Stop date: 01/10/17 9:03:00 CDT, ABX Indication: Intra-abdominal In... Inactive 01/05/2017 [facility] pregabalin 100 MG Oral Capsule [Lyrica] 100 mg=1 cap, PO, BID, 0 Refill(s) No Longer Active 01/05/2017 [facility] Metformin 1,000 mg, PO, BID, 0 Refill(s) Active 01/05/2017 [facility] Omeprazole 40 mg, PO, Daily, 0 Refill(s) No Longer Active 01/05/2017 [facility] Amlodipine 10 mg, PO, Daily, 0 Refill(s) Active 01/05/2017 [facility] Carvedilol (Coreg) 12.5 Mg Tab Twice A Day Active [facility] Clopidogrel Bisulfate (Plavix) 75 Mg Tablet Daily Active [facility] Glyburide 5 Mg Tablet Twice A Day Active [facility] Insulin Glargine (Lantus 3ML Pen) 100 Units/1 Ml Inj Bedtime Active [facility] Losartan Potassium 100 Mg Tablet Twice A Day Active [facility] Metformin Hcl 500 Mg Tablet Twice A Day Active [facility] Pantoprazole Sodium (Protonix) 40 Mg Tablet.dr Daily Active [facility] Pravastatin Sodium (Pravachol) 40 Mg Tablet Bedtime Active THERAPEUTICALLY SUBSTITUTED WITH SIMVASTATIN 20MG [facility] Allergies, Adverse Reactions, Alerts Substance Category Reaction Severity Reaction type Status Date Reported Comments Source Immunizations Immunization Date Given Site Status Last Updated Comments Source influenza virus vaccine, inactivated 01/06/2017 Not Given [facility] Results Order Name Results Value Reference Range Date Interpretation Comments Source Capillary blood glucose measurement by glucometer (mass/volume) 201 70 - 120 07/05/2018 [facility] Blood leukocytes automated count (number/volume) 6.03 4.8 - 10.8 07/04/2018 [facility] Blood erythrocytes automated count (number/volume) 4.22 4.3 - 5.7 07/04/2018 [facility] Blood hemoglobin measurement (moles/volume) 13.3 14.0 - 18.0 07/04/2018 [facility] Automated blood hematocrit (volume fraction) 39.4 38.2 - 49.6 07/04/2018 [facility] Automated erythrocyte mean corpuscular volume 93.4 81 - 99 07/04/2018 [facility] Automated erythrocyte mean corpuscular hemoglobin (mass per erythrocyte) 31.5 28 - 32 07/04/2018 [facility] Automated erythrocyte mean corpuscular hemoglobin concentration measurement (mass/volume) 33.8 31 - 35 07/04/2018 [facility] RDW BldCo-Rto 12.7 11.7 - 14.4 07/04/2018 [facility] Automated blood platelet count (count/volume) 237 140 - 360 07/04/2018 [facility] Automated blood segmented neutrophil count as percentage of total leukocytes 58.3 38.7 - 80.0 07/04/2018 [facility] Automated blood lymphocyte count as percentage ot total leukocytes 25.5 18.0 - 39.1 07/04/2018 [facility] Automated blood monocyte count as percentage of total leukocytes 13.4 4.4 - 11.3 07/04/2018 [facility] Automated blood eosinophil count as percentage of total leukocytes 2.0 0.0 - 6.0 07/04/2018 [facility] Automated blood basophil count as percentage of total leukocytes 0.3 0.0 - 1.0 07/04/2018 [facility] IM GRANULOCYTES % 0.5 0.0 - 1.0 07/04/2018 [facility] Automated blood neutrophil count 3.5 2.1 - 6.9 07/04/2018 [facility] Blood lymphocytes count (number/volume) 1.5 1.0 - 3.2 07/04/2018 [facility] Blood monocytes automated count (number/volume) 0.8 0.2 - 0.8 07/04/2018 [facility] Automated blood eosinophil count 0.1 0.0 - 0.4 07/04/2018 [facility] Automated blood basophil count (count/volume) 0.0 0.0 - 0.1 07/04/2018 [facility] Absolute Immature Granulocyte (auto 0.03 0 - 0.1 07/04/2018 [facility] Serum or plasma sodium measurement (moles/volume) 139 136 - 145 07/04/2018 [facility] Serum or plasma potassium measurement (moles/volume) 4.0 3.5 - 5.1 07/04/2018 [facility] Serum or plasma chloride measurement (moles/volume) 103 98 - 107 07/04/2018 [facility] Serum or plasma carbon dioxide, total measurement (moles/volume) 28 22 - 29 07/04/2018 [facility] Serum or plasma anion gap 12.0 8 - 16 07/04/2018 [facility] Serum or plasma urea nitrogen measurement (mass/volume) 12 7 - 26 07/04/2018 [facility] Serum or plasma creatinine measurement (mass/volume) 0.88 0.72 - 1.25 07/04/2018 [facility] Serum or plasma urea nitrogen/creatinine mass ratio 14 6 - 25 07/04/2018 [facility] Estimated glomerular filtration rate (GFR) determination > 60 60 07/04/2018 [facility] Glucose measurement 84 74 - 118 07/04/2018 [facility] Serum or plasma calcium measurement (mass/volume) 9.3 8.4 - 10.2 07/04/2018 [facility] Hemoglobin A1c Percent 6.7 4.0 - 7.0 07/04/2018 [facility] Serum or plasma triglyceride measurement (mass/volume) 153 0 - 149 07/04/2018 [facility] Serum or plasma cholesterol measurement (mass/volume) 136 0 - 199 07/04/2018 [facility] Serum or plasma cholesterol in LDL measurement (mass/volume) 70 60 - 130 07/04/2018 [facility] Serum or plasma cholesterol in HDL measurement (mass/volume) 35 40 - 60 07/04/2018 [facility] Serum or plasma total cholesterol/cholesterol in HDL mass ratio 3.9 3.9 - 4.7 07/04/2018 [facility] Serum or plasma creatine kinase measurement (enzymatic activity/volume) 164 30 - 200 07/04/2018 [facility] Serum or plasma creatine kinase MB measurement (mass/volume) 1.70 0 - 5.0 07/04/2018 [facility] Troponin I measurement by highly sensitive enzyme immunoassay 0.010 0 - 0.300 07/04/2018 [facility] Abdomen 2 views DX Abdomen 2 views DX 2 VIEW ABDOMEN INDICATION: Food poisoning 2 weeks ago. Patient now says her "stomach doesn't feel right" however she denies nausea, abdominal pain, vomiting or diarrhea. COMPARISON: No priors available. The bowel gas pattern, soft tissues and bones appear normal. Lung bases clear. IMPRESSION: Normal exam. END IMPRESSION SL: [id number] 11/27/2017 - - Read by: Kvng Anthony MD Dictated Date/time: 11/27/17 16:50 Electronically Signed by: Kvng Anthony MD 11/27/17 16:51 FINAL REPORT [facility] Spine lumbar wo contrast MRI Spine lumbar wo contrast MRI EXAM: MRI LUMBAR SPINE WITHOUT CONTRAST DATE: 02/14/2017 6:16 PM TUGGER OPERATOR . ORDERING PHYSICIAN: Kallie Rivera MD CLINICAL [...] Edward Escobar MD 02/15/17 06:47 FINAL REPORT [facility] CHEM PANEL Lactic Acid Lvl 1.9 mMol/L 0.5 - 2.2 01/06/2017 [facility] URINE AND STOOL UA Leuk Est Negative (01/05/17 7:37 PM) Negative 01/06/2017 [facility] URINE AND STOOL UA Sq Epi Occasional /LPF Few /LPF 01/06/2017 [facility] URINE AND STOOL UA Blood Negative (01/05/17 7:37 PM) Negative 01/06/2017 [facility] URINE AND STOOL UA Nitrite Negative (01/05/17 7:37 PM) Negative 01/06/2017 [facility] URINE AND STOOL UA WBC 1 /HPF 0 - 5 01/06/2017 [facility] URINE AND STOOL UA Protein Negative mg/dL Negative mg/dL 01/06/2017 [facility] URINE AND STOOL UA Glucose 500 mg/dL Negative mg/dL 01/06/2017 [facility] URINE AND STOOL UA pH 5.0 5.0 - 8.0 01/06/2017 [facility] URINE AND STOOL UA Ketones Trace mg/dL Negative mg/dL 01/06/2017 [facility] URINE AND STOOL UA Bili Negative *NA* (01/05/17 7:37 PM) Negative 01/06/2017 [facility] URINE AND STOOL UA Turbidity Clear (01/05/17 7:37 PM) Clear 01/06/2017 [facility] URINE AND STOOL UA Spec Grav 1.031 <=1.030 01/06/2017 [facility] URINE AND STOOL UA Color Ltyellow 01/06/2017 [facility] URINE AND STOOL UA Urobilinogen <=1.0 mg/dL 0.1 - 1.0 01/06/2017 [facility] URINE AND STOOL UA RBC null 0 - 2 01/06/2017 [facility] CARDIAC ENZYMES BNP 16 pg/mL <=100 pg/mL 01/05/2017 [facility] CARDIAC ENZYMES Troponin-I null 0.00 - 0.40 01/05/2017 [facility] CHEM PANEL Globulin 2.9 g/dL 2.7 - 4.2 01/05/2017 [facility] CHEM PANEL Bili Indirect 0.4 mg/dL 0.0 - 1.0 01/05/2017 [facility] CHEM PANEL A/G Ratio 1.1 0.7 - 1.6 01/05/2017 [facility] CHEM PANEL Bili Total 0.5 mg/dL 0.2 - 1.3 01/05/2017 [facility] CHEM PANEL Bili Direct 0.1 mg/dL 0.0 - 0.3 01/05/2017 [facility] CHEM PANEL Total Protein 6.2 g/dL 6.4 - 8.4 01/05/2017 [facility] CHEM PANEL ALT 46 unit/L 0 - 65 01/05/2017 [facility] CHEM PANEL Albumin Lvl 3.3 g/dL 3.5 - 5.0 01/05/2017 [facility] CHEM PANEL Alk Phos 51 unit/L 39 - 136 01/05/2017 [facility] CHEM PANEL AST 20 unit/L 0 - 37 01/05/2017 [facility] ELECTROLYTES AGAP 14.3 meq/L 10.0 - 20.0 01/05/2017 [facility] ELECTROLYTES eGFR 71 mL/min/1.73m2 01/05/2017 Result Comment: [...] should be multiplied by the estimated BMI. [facility] ELECTROLYTES Calcium Lvl 7.6 mg/dL 8.5 - 10.5 01/05/2017 [facility] ELECTROLYTES Chloride Lvl 103 meq/L 95 - 109 01/05/2017 [facility] ELECTROLYTES CO2 27 meq/L 24 - 32 01/05/2017 [facility] ELECTROLYTES Sodium Lvl 140 meq/L 135 - 145 01/05/2017 [facility] ELECTROLYTES Potassium Lvl 4.3 meq/L 3.5 - 5.1 01/05/2017 [facility] ELECTROLYTES Glucose Lvl 178 mg/dL 70 - 99 01/05/2017 [facility] ELECTROLYTES BUN 21 mg/dL 7 - 22 01/05/2017 [facility] ELECTROLYTES Creatinine Lvl 1.10 mg/dL 0.50 - 1.40 01/05/2017 [facility] RBC 4.32 M/CMM 4.70 - 6.10 01/05/2017 [facility] WBC 5.5 K/CMM 3.7 - 10.4 01/05/2017 [facility] MCV 94.0 fL 80.0 - 94.0 01/05/2017 [facility] MCHC 34.0 g/dL 32.0 - 36.0 01/05/2017 [facility] MCH 32.0 pg 27.0 - 31.0 01/05/2017 [facility] Hgb 13.8 g/dL 14.0 - 18.0 01/05/2017 [facility] Hct 40.6 % 42.0 - 54.0 01/05/2017 [facility] RDW 13.6 % 11.5 - 14.5 01/05/2017 [facility] MPV 8.3 fL 7.4 - 10.4 01/05/2017 [facility] Platelet 160 K/CMM 133 - 450 01/05/2017 [facility] Lymphocytes 2.5 % 20.0 - 40.0 01/05/2017 [facility] HEMATOLOGY Eosinophils 0.1 % 0.0 - 4.0 01/05/2017 [facility] HEMATOLOGY Monocytes 4.8 % 2.0 - 12.0 01/05/2017 [facility] HEMATOLOGY Segs 92.3 % 45.0 - 75.0 01/05/2017 [facility] HEMATOLOGY Monocytes # 0.3 K/CMM 0.0 - 0.8 01/05/2017 [facility] HEMATOLOGY Lymphocytes # 0.1 K/CMM 1.0 - 5.5 01/05/2017 [facility] HEMATOLOGY Segs-Bands # 5.1 K/CMM 1.5 - 8.1 01/05/2017 [facility] HEMATOLOGY Basophils 0.3 % 0.0 - 1.0 01/05/2017 [facility] Vital Signs Vital Sign Value Date Comments Source Systolic (mm Hg) 116 01/06/2017 [facility] Diastolic (mm Hg) 65 01/06/2017 [facility] Respitory Rate 16 01/06/2017 [facility] Heart Rate 76 01/06/2017 [facility] Temperature Oral (F) 98.1 F 01/06/2017 [facility] Respitory Rate 16 01/06/2017 [facility] Heart Rate 89 01/06/2017 [facility] Temperature Oral (F) 99.9 F 01/06/2017 [facility] Systolic (mm Hg) 119 01/06/2017 [facility] Diastolic (mm Hg) 63 01/06/2017 [facility] Temperature Oral (F) 99 F 01/06/2017 [facility] Systolic (mm Hg) 115 01/06/2017 [facility] Diastolic (mm Hg) 62 01/06/2017 [facility] Respitory Rate 17 01/06/2017 [facility] Heart Rate 91 01/06/2017 [facility] Height 177.8 cm 01/05/2017 [facility] Weight 102.273 01/05/2017 [facility] BMI Calculated 32.35 01/05/2017 [facility] Encounters Location Location Details Encounter Type Encounter Number Reason For Visit Attending Provider ADM Date DC Date Status Source [facility] OP Therapy Patients [id number] Anderson Bell 04/11/2014 05/11/2014 [facility] OP Therapy Patients [id number] Anderson Bell 05/15/2014 06/14/2014 [facility] Observation [id number] Chilo Zarco 01/05/2017 01/06/2017 [facility] Outpatient Imaging [facility] Outpt Diag Services [id number] Kallie Rivera 02/14/2017 02/15/2017 [facility] Outpatient [id number] Ilansania Moreno 11/27/2017 11/28/2017 [facility] Outpatient [id number] ALYSSIA HARRIS 05/29/2018 Active [facility] Discharged Inpatient (obs) [id number] JACOB BALTAZAR MD 07/03/2018 07/05/2018 [facility] Outpatient [id number] ALYSSIA HARRIS 11/27/2018 Active [facility] Procedures Procedure Code Date Perfomer Comments Source Magnetic resonance imaging of brain without contrast [id number] 07/04/2018 COREY [facility] Ankle joint operations [id number] [facility] Carpal tunnel release [id number] [facility] Knee replacement [id number] [facility] Ankle joint operations [id number] [facility] Carpal tunnel release [id number] [facility] Knee replacement [id number] [facility] Cataract surgery [id number] [facility] Colonoscopy [id number] [facility]
--- OUTSIDE RECORDS SUMMARY | 2018-08-23 05:33 | XMS REPORT | Summary of Care ---
Author Author Ami Carlos M.A. Unknown Address Unknown Phone Unavailable Care Team Providers Care Rug Dry Room Attendant Name Role Phone JARRET Weeks, GM Unavailable Unavailable GEN MARTINEZ M.D., TAB Unavailable Unavailable KINGSTON Weeks, SHARON Unavailable Unavailable TRACY BRAGG, NORMAN FERMIN Unavailable Unavailable CHRISTY BARON MD, ABBI Capps Unavailable Unavailable DELMY BRAGG, JEREMIAS M Unavailable Unavailable TRACY BRAGG, NORMAN Unavailable Unavailable KINGSTON BRAGG, SHARON Adams Unavailable Unavailable Unavailable Unavailable Functional Status Name Dates Details Functional status health issues are not documented Status: Name Dates Details Cognitive status health issues are not documented Status: Problems Name Dates Details Gastroesophageal reflux disease, esophagitis presence not specified (530.81, K21.9) Status: Active Tear of medial meniscus of knee (836.0, S83.249A) Status: Active Incomplete tear of left rotator cuff (840.4, M75.112) Status: Active Diabetes (250.00, E11.9) Status: Active Hypertension (401.9, I10) Status: Active PVD (peripheral vascular disease) (443.9, I73.9) Status: Active Hyperlipidemia (272.4, E78.5) Status: Active Pain of left hand (729.5, M79.642) Status: Active Cubital tunnel syndrome on left (354.2, G56.22) Status: Active Trigger little finger of left hand (727.03, M65.352) Status: Active Medications Name Dates Details Lantus [...] TWICE DAILY. * Quantity: 180 Refills: 1 JARRET Weeks, GM * Start : 13-Dec-2016 Active Furosemide 20 MG Oral Tablet TAKE 1 TABLET BY MOUTH EVERY MORNING * Quantity: 30 Refills: 0 JARRET Weeks, GM * Start : 12-Jun-2018 Active Losartan Potassium 50 MG Oral Tablet TAKE 1 TABLET DAILY * Quantity: 1 Refills: 1 JARRET Weeks, GM * Start : 05-Dec-2017 Active 90 Tablet Bottle Pantoprazole Sodium 40 MG Oral Tablet Delayed Release TAKE 1 TABLET DAILY. * Refills: 0 * Start : 05-Dec-2017 Active 7 Tablet Bottle Pravastatin Sodium 40 MG Oral Tablet TAKE 1 TABLET AT BEDTIME. * Refills: 6 TAB KAMARA M.D. * Start : 21-May-2018 Active 90 Tablet Bottle Clopidogrel Bisulfate 75 MG Oral Tablet TAKE 1 TABLET DAILY * Refills: 0 * Start : 24-Jul-2018 Active Allergies and Adverse Reactions Name Dates Details No Known Drug Allergies (Allergy) Status: Active Past Medical History Name Dates Details Diabetes (250.00, E11.9) Status: Active Hypertension (401.9, I10) Status: Active History of stroke (V12.54, Z86.73) Status: Resolved Procedures Procedure Dates Details [UTP] EMG Date: 16-Aug-2018 History of Carpal tunnel surgery Completed History [...] smoked Vital Signs Date Test Result Details [id number] BP Systolic 150 mm[Hg] Status: Comments: Location: E; Position: Sitting BP Diastolic 70 mm[Hg] Status: Comments: Location: LUE; Position: Sitting Height 70 in Status: Weight 226 lb Status: Body Mass Index Calculated 32.43 kg/m2 Status: Body Surface Area Calculated 2.2 m2 Status: Heart Rate 69 /min Status: Comments: Location: L Radial; Quality: Normal Results Date Description Value Details [id number] [U] XRAY KNEE 1 OR 2 VWS LEFT [id number] XR KNEE 1 OR 2 VWS LEFT Images acquired, not reported on this accession number. Plan of Care Name Dates Details Planned Observations [UTP] EMG On: 16-Aug-2018 Intent Planned Goals not documented Instructions Name Dates Details Instructions not documented [...] not documented On: 27-Jun-2017 14:40 Appointment; TAB KAAMRA M.D. Encounter Diagnosis: Problem not documented On: [...] M.D. Encounter Diagnosis: Problem not documented On: 17-Jul-2018 12:15 Appointment; GM WHEAT M.D. Encounter Diagnosis: Problem not documented On: 24-Jul-2018 10:50 Appointment; ABBI HARRISON M.D. Encounter Diagnosis: Problem not documented On: 24-Jul-2018 12:45 Appointment; SHARON ONOFRE M.D. Encounter Diagnosis: Problem not documented On: 16-Aug-2018 11:00
[2018-08-23 08:00] VITALS: BP 130/71
== END | disposition home or self-care (01) ==
LOC: OR 05:25
PROVIDERS: ATTEND Internal Medicine Gastroenterology
DX: K29.70 Gastritis, unspecified, without bleeding (principal); K44.9 Diaphragmatic hernia without obstruction or gangrene; R10.13 Epigastric pain; E66.9 Obesity, unspecified; E11.9 Type 2 diabetes mellitus without complications; Z68.31 Body mass index [BMI] 31.0-31.9, adult; Z01.812 Encounter for preprocedural laboratory examination; Z86.73 Personal history of transient ischemic attack (TIA), and cerebral infarction without residual deficits; M54.2 Cervicalgia; G47.33 Obstructive sleep apnea (adult) (pediatric); I10 Essential (primary) hypertension; K21.9 Gastro-esophageal reflux disease without esophagitis; Z79.84 Long term (current) use of oral hypoglycemic drugs; K31.7 Polyp of stomach and duodenum
CPT/HCPCS: 36415; 43239; 82948; 85025

== ENCOUNTER → 2018-09-26 | Outpatient (CLI) | payer MEDICARE, BC ==
[~2018-09-26] MED LIST changes: -FENTANYL CITRATE/PF 100MCG/2 ML INJ ONE; +GLYBURIDE-METF1 EAC1 PO; -PROPOFOL IV EMULSION 10 MG/ML 50 ML VIAL ONE; +[UNRECOGNIZED DRUG - OTHER] PO
--- NOTE | 2018-09-26 11:53 | Diagnostic Imaging Report ---
Hepatobiliary Scan with Gallbladder Ejection Fraction Clinical information: Abdominal pain Technique: Following intravenous administration of 6.9 millicuries of Tc-99m mebrofenin, dynamic images of the abdomen in the anterior projection were obtained through 30 minutes. Sincalide (CCK analog) 2.3 micrograms was administered intravenously over 30 minutes with additional imaging for determination of gallbladder ejection fraction. Discussion: Perfusion of the liver is normal. Extraction of tracer by the liver parenchyma is normal. Tracer appears promptly within the biliary tract. The gallbladder begins to fill by 6 minutes post injection of tracer and fills adequately. Tracer is seen in the small bowel during the sincalide infusion. The gallbladder ejection fraction with sincalide is 31% (normal greater than 40%). Impression: 1. Filling of the gallbladder excludes acute cystic duct obstruction/acute cholecystitis. 2. The decreased gallbladder ejection fraction of 31% supports the clinical diagnosis of chronic cholecystitis/gallbladder dyskinesia. Signed by: Dr. Puja Pickard M.D. on 09/26/2018 11:49 AM
== END ==
LOC: NM 08:18
PROVIDERS: ATTEND Internal Medicine Gastroenterology
DX: R10.13 Epigastric pain (principal); R10.84 Generalized abdominal pain; E11.9 Type 2 diabetes mellitus without complications; I10 Essential (primary) hypertension; E66.9 Obesity, unspecified; Z71.3 Dietary counseling and surveillance
CPT/HCPCS: 78227; A9537

== ENCOUNTER → 2018-10-02 | Outpatient (CLI) | payer MEDICARE, BC ==
[~2018-10-02] MED LIST changes: +IOPAMIDOL 370 MG/ML 200 ML INFUS..BTL INJ ONE; +SODIUM CHLORIDE 0.9% 50ML 50 ML ONE
[2018-10-02 09:36] LABS: BLOOD UREA NITROGEN 15 mg/dL (7-26); BUN/CREATININE RATIO 19 (6-25); EST GLOMERULAR FILTRATION RATE > 60 ML/MIN (60-)
--- NOTE | 2018-10-02 11:14 | Diagnostic Imaging Report ---
EXAM: CT Abdomen and Pelvis WITH intravenous contrast INDICATION: Abdominal pain COMPARISON: HIDA scan 09/26/2018 TECHNIQUE: Abdomen and pelvis were scanned utilizing a multidetector helical scanner from the lung base to the pubic symphysis after administration of IV contrast. Coronal and sagittal reformations were obtained. Routine protocol was performed. Scan was performed when during portal venous phase. IV CONTRAST: 100 mL of Isovue-370 ORAL CONTRAST: Water COMPLICATIONS: None RADIATION DOSE: Total DLP: 785.67 mGy*cm Dose modulation, iterative reconstruction, and/or weight based adjustment of the mA/kV was utilized to reduce the radiation dose to as low as reasonably achievable. FINDINGS: LOWER THORAX: No focal consolidation or pulmonary edema. Atherosclerotic calcifications of the coronary arteries. HEPATOBILIARY: No focal hepatic lesions. No biliary ductal dilatation. The gallbladder appears unremarkable. SPLEEN: No splenomegaly. PANCREAS: No focal masses or ductal dilatation. ADRENALS: A proximally 1.2 cm right adrenal nodule, indeterminate on this single phase contrast-enhanced study. KIDNEYS/URETERS: No hydronephrosis, stones, or solid mass lesions. PELVIC ORGANS/BLADDER: Unremarkable. PERITONEUM / RETROPERITONEUM: No free air or fluid. LYMPH NODES: No lymphadenopathy. VESSELS: Mild scattered atherosclerotic calcifications of the abdominal aorta and major branches. GI TRACT: There is mild diverticulosis of the descending and proximal transverse colon with adjacent fat stranding in the region of the hepatic flexure. No free air or associated abscess. Normal appendix. BONES AND SOFT TISSUES: Unremarkable. IMPRESSION: Findings of right colon diverticulitis in the region of the hepatic flexure. No evidence of perforation or abscess. Right adrenal nodule (1.2cm) is indeterminate on this single phase contrast enhanced study. Follow-up adrenal mass protocol CT is recommended. Signed by: Renetta Willson MD on 10/02/2018 11:10 AM
== END ==
LOC: CT 08:37
PROVIDERS: ATTEND Internal Medicine Gastroenterology
DX: E11.9 Type 2 diabetes mellitus without complications (principal); R10.84 Generalized abdominal pain; R10.13 Epigastric pain; E66.9 Obesity, unspecified; Z71.3 Dietary counseling and surveillance
CPT/HCPCS: 36415; 74177; 82565; 84520; Q9967

== ENCOUNTER → 2018-12-06 | Day surgery (SDC) | payer MEDICARE, BC ==
[2018-12-03 16:12] LABS: BASOPHILS % 0.8 % (0.0-1.0); EOSINOPHILS # (AUTO) 0.1 (0.0-0.4); EOSINOPHILS % 1.3 % (0.0-6.0); HEMATOCRIT 36.2 % (38.2-49.6); HEMOGLOBIN 12.5 g/dL (14.0-18.0); LYMPHOCYTES # (AUTO) 1.3 (1.0-3.2); LYMPHOCYTES % 32.6 % (18.0-39.1); MEAN CORPUSCULAR HEMOGLOBIN 31.6 pg (28-32); MEAN CORPUSCULAR HGB CONC 34.5 g/dL (31-35); MEAN CORPUSCULAR VOLUME 91.6 fL (81-99); MONOCYTES # (AUTO) 0.6 (0.2-0.8); MONOCYTES % 14.8 % (4.4-11.3); NEUTROPHILS # (AUTO) 1.9 (2.1-6.9); NEUTROPHILS % 49.5 % (38.7-80.0); PLATELET COUNT 238 x10e3/uL (140-360); RED BLOOD COUNT 3.95 x10e6/uL (4.3-5.7); RED CELL DISTRIBUTION WIDTH 12.1 % (11.7-14.4)
[~2018-12-06] MED LIST changes: +FENTANYL CITRATE/PF 100MCG/2 ML INJ ONE; -IOPAMIDOL 370 MG/ML 200 ML INFUS..BTL INJ ONE; +MIDAZOLAM HCL 2 MG/2 ML VIAL ONE; +PROPOFOL IV EMULSION 10 MG/ML 50 ML VIAL ONE; +SIMETHICONE 40 MG/0.6 ML BTL ONE; -SODIUM CHLORIDE 0.9% 50ML 50 ML ONE
--- OUTSIDE RECORDS SUMMARY | 2018-12-06 05:27 | XMS REPORT | Continuity of Care Document ---
Author Author Rapport Address Unknown Phone Unavailable Care Team Providers Care Planning Director Name Role Phone [employer] Unavailable Unavailable Problems Problem Status Onset Date Classification Date Reported Comments Source Epigastric pain 12/01/2017 06/16/2018 [facility] DIAC Active 11/27/2017 [facility] ABD PAIN Active 01/05/2017 [facility] Arthritis (disorder) Resolved Problem 06/16/2018 [facility] Carpal tunnel syndrome (disorder) Resolved Problem 06/16/2018 [facility] Cataract (disorder) Resolved Problem 06/16/2018 [facility] Cerebrovascular accident (disorder) Resolved Problem 06/16/2018 [facility] Depressive disorder (disorder) Resolved Problem 06/16/2018 [facility] Diabetes mellitus (disorder) Resolved Problem 06/16/2018 [facility] Erectile dysfunction co-occurrent and due to arterial insufficiency (disorder) Resolved Problem 06/16/2018 [facility] Hypertensive disorder, systemic arterial (disorder) Resolved Problem 06/16/2018 [facility] Intermittent claudication (disorder) Resolved Problem 06/16/2018 [facility] Neuropathy (disorder) Resolved Problem 06/16/2018 [facility] Obesity (disorder) Resolved Problem 06/16/2018 [facility] Osteoarthritis (disorder) Resolved Problem 06/16/2018 [facility] Sleep apnea (finding) Resolved Problem 06/16/2018 [facility] Testicular hypofunction (disorder) Resolved Problem 06/16/2018 [facility] Thoracic back pain (disorder) Resolved Problem 06/16/2018 [facility] Transient ischemic attack Active Problem 07/05/2018 [facility] RT HIP PAIN Active [facility] [place] EPIGASTRIC PAIN Active [facility] Medications Medication Details Route Status Patient Instructions Ordering Provider Order Date Source Metronidazole 500 MG Oral Tablet [Flagyl] 500 mg=1 tab, PO, Q8H, X 5 day, # 15 tab, 0 Refill(s) Active 01/06/2017 [facility] Amlodipine 10 mg, 2 tab, Route: PO, Drug form: TAB, Daily, Dosing Weight 102.273, kg, Start date: 01/06/17 9:00:00 CDT, Duration: 30 day, Stop date: 02/04/17 9:00:00 CSTNotes: (Same as: Norvasc) Inactive 01/06/2017 [facility] Docusate 100 mg, 1 cap, Route: PO, Drug form: CAP, BID, Dosing Weight 102.273, kg, Start date: 01/06/17 9:00:00 CDT, Duration: 30 day, Stop date: 02/04/17 17:00:00 CSTNotes: (Same as: Colace) (Do Not Crush) Inactive 01/06/2017 [facility] influenza virus vaccine, inactivated 0.5 mL, Route: IM, Drug Form: SUSP, Daily, Start date: 01/06/17 9:00:00 CDT, Duration: 1 doses or times, Stop date: 01/06/17 9:00:00 CDTNotes: (Same as: Fluzone Quadrivalent, Fluarix Quadrivalent) For 3 years of age and older (0.5 mL IM) Shake well before use Inactive 01/06/2017 [facility] Fluticasone propionate 0.05 MG/ACTUAT Metered Dose Nasal [place] [Flonase] 2 spray, Route: Each Affected Nostril, Drug Form: SPRY, Dosing Weight 102.273, kg, Daily, PRN Nasal Congestion, Start date: 01/06/17 0:22:00 CDT, Duration: 30 day, Stop date: 02/05/17 0:21:00 CSTNotes: (Same as: Flonase) Inactive 01/06/2017 [facility] Fluticasone propionate 0.05 MG/ACTUAT Metered Dose Nasal [place] [Flonase] 2 spray, Route: Each Affected Nostril, Drug Form: SPRY, Dosing Weight 102.273, kg, Q6H, PRN Nasal Congestion, Start date: 01/05/17 23:55:00 CDT, Duration: 30 day, Stop date: 02/04/17 23:54:00 CSTNotes: (Same as: Flonase) No Longer Active 01/06/2017 [facility] Insulin Lispro 6 unit, 0.06 mL, Route: [...] days from Date No Longer Active 01/06/2017 [facility] Dextrose 50% Syringe 25 gm, 50 mL, Route: IVP, Drug Form: INJ, Dosing Weight 102.273, kg, PRN, PRN Blood Glucose Results, Start date: 01/05/17 23:25:00 CDT, Duration: 30 day, Stop date: 02/04/17 22:24:00 [facility] No Longer Active 01/06/2017 [facility] Glucagon 1 mg, Route: IM, Drug form: PDR/INJ, PRN, Dosing Weight 102.273, kg, PRN Blood Glucose Results, Start date: 01/05/17 23:25:00 CDT, Duration: 30 day, Stop date: 02/04/17 22:24:00 [employer] [facility] No Longer Active 01/06/2017 [facility] Ondansetron 4 mg, Route: IV, Q6H, Dosing Weight 102.273, kg, PRN, Start date: 01/05/17 21:25:00 CDT, Duration: 30 day, Stop date: 02/04/17 21:24:00 [employer] [facility], Nausea and Vomiting Inactive 01/06/2017 [facility] Morphine 4 mg, 1 mL, Route: IV, Drug form: SOLN, Q6H, Dosing Weight 102.273, kg, PRN Pain Score 6-10, Start date: 01/05/17 21:25:00 CDT, Duration: 30 day, Stop date: 02/04/17 21:24:00 [employer] [facility], PainNotes: (Same as:MORPhine Sulfate) No Longer Active 01/06/2017 [facility] Vancomycin 1.25 gm, 250 mL, Route: IV, Drug form: INJ, [id number], Dosing Weight 84.091, kg, Start date: 01/05/17 20:00:00 CDT, Duration: 30 day, Stop date: 02/04/17 8:00:00 [employer] [facility], ABX Indication: Intra-abdominal Infec tionNotes: TIME CRITICAL MEDICATION Same as: Vancocin-NS (premixed) Infusion rate 2001 mg: infuse over 2.5 hours No Longer Active 01/06/2017 [facility] Flagyl 500 mg, 100 mL, Route: IVPB, Drug form: INJ, ABXQ8H, Dosing Weight 84.091, kg, Start date: 01/05/17 18:00:00 CDT, Duration: 5 day, Stop date: 01/10/17 10:00:00 CDT, ABX Indication: Intra-abdominal Infec tionNotes: (Same as: Flagyl) Avoid alcohol. No Longer Active 01/05/2017 [facility] cefepime 1 gm, Route: IVPB, ABXQ8H, Dosing Weight 84.091, kg, (CrCl >/=50 ml/min), Start date: 01/05/17 18:00:00 CDT, Duration: 5 day, Stop date: 01/10/17 10:00:00 CDT, ABX Indication: Intra-abdominal InfectionNotes: (Same As: Maxipime) MEDICATION WASTE Product Size: 1000 mg Product Wasted: ___ mg No Longer Active 01/05/2017 [facility] Vancomycin 1 ea, Route: MISC, ONCALL, Dosing Weight 84.091, kg, Start date: 01/05/17 18:00:00 CDT, day, Stop date: 01/05/17 18:00:00 CDT, Pharmacy to dose, ABX Indication: Intra-abdominal Infection Inactive 01/05/2017 [facility] Glucagon 1 mg, Route: IM, Drug form: PDR/INJ, PRN, Dosing Weight 102.273, kg, PRN Blood Glucose Results, Start date: 01/05/17 17:28:00 CDT, Duration: 30 day, Stop date: 02/04/17 16:27:00 [facility] No Longer Active 01/05/2017 [facility] Dextrose 50% Syringe 12.5 gm, 25 mL, Route: IVP, Drug Form: INJ, Dosing Weight 102.273, kg, PRN, PRN Blood Glucose Results, Start date: 01/05/17 17:28:00 CDT, Duration: 30 day, Stop date: 02/04/17 16:27:00 [employer] No Longer Active 01/05/2017 [facility] sodium chloride 0.9% 1000 ml INJ 1,000 mL 1,000 mL, Rate: 125 ml/hr, Infuse over: 8 hr, Route: IV, Dosing Weight 102.273 kg, Total Volume: 1,000, Start date: 01/05/17 17:27:00 CDT, Duration: 30 day, Stop date: 02/04/17 17:26:00 [employer] No Longer Active 01/05/2017 [facility] Ondansetron 4 mg, 2 mL, Route: IVP, Drug form: INJ, Q6H, Dosing Weight 102.273, kg, PRN Nausea & Vomiting, Start date: 01/05/17 17:26:00 CDT, Duration: 30 day, Stop date: 02/04/17 17:25:00 CSTNotes: (Same as: Ivana) MEDICATION WASTE Product Size: 4 mg Product Wasted: ___ mg No Longer Active 01/05/2017 [facility] Acetaminophen 650 mg, 2 tab, Route: PO, Drug form: TAB, Q4H, Dosing Weight 102.273, kg, PRN Pain 1-3/Temp > 100.4 F, Start date: 01/05/17 17:26:00 CDT, Duration: 30 day, Stop date: 02/04/17 17:25:00 CSTNotes: Do not exceed 4 gm/day. (Same as: Tylenol) No Longer Active 01/05/2017 [facility] Zosyn 3.375 gm, Route: IVPB, Drug form: PDR/INJ, ABXQ8H, Dosing Weight 84.091, kg, CrCl >=20 ml/min infuse over 4 hours, Priority: STAT, Start date: 01/05/17 17:03:00 CDT, Duration: 5 day, Stop date: 01/10/17 9:03:00 CDT, ABX Indication: Intra-abdominal In... Inactive 01/05/2017 [facility] pregabalin 100 MG Oral Capsule [Lyrica] 100 mg=1 cap, PO, BID, 0 Refill(s) No Longer Active 01/05/2017 [facility] Metformin 1,000 mg, PO, BID, 0 Refill(s) Active 01/05/2017 [facility] Omeprazole 40 mg, PO, Daily, 0 Refill(s) No Longer Active 01/05/2017 [facility] Amlodipine 10 mg, PO, Daily, 0 Refill(s) Active 01/05/2017 [facility] Carvedilol (Coreg) 12.5 Mg Tab Twice A Day Active [facility] Clopidogrel Bisulfate (Plavix) 75 Mg Tablet Daily Active [facility] Glyburide 5 Mg Tablet Twice A Day Active [facility] Insulin Glargine (Lantus 3ML Pen) 100 Units/1 Ml Inj Bedtime Active [facility] Losartan Potassium 100 Mg Tablet Twice A Day Active [facility] Metformin Hcl 500 Mg Tablet Twice A Day Active [facility] Pantoprazole Sodium (Protonix) 40 Mg Tablet.dr Daily Active [facility] Pravastatin Sodium (Pravachol) 40 Mg Tablet Bedtime Active THERAPEUTICALLY SUBSTITUTED WITH SIMVASTATIN 20MG [facility] Allergies, Adverse Reactions, Alerts No Known Medication Allergies Immunizations Immunization Date Given Site Status Last Updated Comments Source influenza virus vaccine, inactivated 01/06/2017 Not Given [facility] Results Order Name Results Value Reference Range Date Interpretation Comments Source Capillary blood glucose measurement by glucometer (mass/volume) 201 70 - 120 07/05/2018 [facility] Blood leukocytes automated count (number/volume) 6.03 4.8 - 10.8 07/04/2018 [facility] Blood erythrocytes automated count (number/volume) 4.22 4.3 - 5.7 07/04/2018 [facility] Blood hemoglobin measurement (moles/volume) 13.3 14.0 - 18.0 07/04/2018 [facility] Automated blood hematocrit (volume fraction) 39.4 38.2 - 49.6 07/04/2018 [facility] Automated erythrocyte mean corpuscular volume 93.4 81 - 99 07/04/2018 [facility] Automated erythrocyte mean corpuscular hemoglobin (mass per erythrocyte) 31.5 28 - 32 07/04/2018 [facility] Automated erythrocyte mean corpuscular hemoglobin concentration measurement (mass/volume) 33.8 31 - 35 07/04/2018 [facility] RDW BldCo-Rto 12.7 11.7 - 14.4 07/04/2018 [facility] Automated blood platelet count (count/volume) 237 140 - 360 07/04/2018 [facility] Automated blood segmented neutrophil count as percentage of total leukocytes 58.3 38.7 - 80.0 07/04/2018 [facility] Automated blood lymphocyte count as percentage ot total leukocytes 25.5 18.0 - 39.1 07/04/2018 [facility] Automated blood monocyte count as percentage of total leukocytes 13.4 4.4 - 11.3 07/04/2018 [facility] Automated blood eosinophil count as percentage of total leukocytes 2.0 0.0 - 6.0 07/04/2018 [facility] Automated blood basophil count as percentage of total leukocytes 0.3 0.0 - 1.0 07/04/2018 [facility] IM GRANULOCYTES % 0.5 0.0 - 1.0 07/04/2018 [facility] Automated blood neutrophil count 3.5 2.1 - 6.9 07/04/2018 [facility] Blood lymphocytes count (number/volume) 1.5 1.0 - 3.2 07/04/2018 [facility] Blood monocytes automated count (number/volume) 0.8 0.2 - 0.8 07/04/2018 [facility] Automated blood eosinophil count 0.1 0.0 - 0.4 07/04/2018 [facility] Automated blood basophil count (count/volume) 0.0 0.0 - 0.1 07/04/2018 [facility] Absolute Immature Granulocyte (auto 0.03 0 - 0.1 07/04/2018 [facility] Serum or plasma sodium measurement (moles/volume) 139 136 - 145 07/04/2018 [facility] Serum or plasma potassium measurement (moles/volume) 4.0 3.5 - 5.1 07/04/2018 [facility] Serum or plasma chloride measurement (moles/volume) 103 98 - 107 07/04/2018 [facility] Serum or plasma carbon dioxide, total measurement (moles/volume) 28 22 - 29 07/04/2018 [facility] Serum or plasma anion gap 12.0 8 - 16 07/04/2018 [facility] Serum or plasma urea nitrogen measurement (mass/volume) 12 7 - 26 07/04/2018 [facility] Serum or plasma creatinine measurement (mass/volume) 0.88 0.72 - 1.25 07/04/2018 [facility] Serum or plasma urea nitrogen/creatinine mass ratio 14 6 - 25 07/04/2018 [facility] Estimated glomerular filtration rate (GFR) determination > 60 60 07/04/2018 [facility] Glucose measurement 84 74 - 118 07/04/2018 [facility] Serum or plasma calcium measurement (mass/volume) 9.3 8.4 - 10.2 07/04/2018 [facility] Hemoglobin A1c Percent 6.7 4.0 - 7.0 07/04/2018 [facility] Serum or plasma triglyceride measurement (mass/volume) 153 0 - 149 07/04/2018 [facility] Serum or plasma cholesterol measurement (mass/volume) 136 0 - 199 07/04/2018 [facility] Serum or plasma cholesterol in LDL measurement (mass/volume) 70 60 - 130 07/04/2018 [facility] Serum or plasma cholesterol in HDL measurement (mass/volume) 35 40 - 60 07/04/2018 [facility] Serum or plasma total cholesterol/cholesterol in HDL mass ratio 3.9 3.9 - 4.7 07/04/2018 [facility] Serum or plasma creatine kinase measurement (enzymatic activity/volume) 164 30 - 200 07/04/2018 [facility] Serum or plasma creatine kinase MB measurement (mass/volume) 1.70 0 - 5.0 07/04/2018 [facility] Troponin I measurement by highly sensitive enzyme immunoassay 0.010 0 - 0.300 07/04/2018 [facility] CHEM PANEL Lactic Acid Lvl 1.9 0.5 - 2.2 01/06/2017 [facility] UA Leuk Est Negative (01/05/17 7:37 PM) Negative 01/06/2017 [facility]A Sq Epi Occasional /LPF Few /LPF 01/06/2017 [facility] UA Blood Negative (01/05/17 7:37 PM) Negative 01/06/2017 [facility] UA Nitrite Negative (01/05/17 7:37 PM) Negative 01/06/2017 [facility] UA WBC 1 0 - 5 01/06/2017 [facility]A Protein Negative mg/dL Negative mg/dL 01/06/2017 [facility]INE [facility] STOOL UA Glucose 500 mg/dL Negative mg/dL 01/06/2017 [facility]INE [facility] STOOL UA pH 5.0 5.0 - 8.0 01/06/2017 [facility]INE AND STOOL UA Ketones Trace mg/dL Negative mg/dL 01/06/2017 [facility] URINE AND STOOL UA Bili Negative *NA* (01/05/17 7:37 PM) Negative 01/06/2017 [facility] URINE AND STOOL UA Turbidity Clear (01/05/17 7:37 PM) Clear 01/06/2017 [facility]INE AND STOOL UA Spec Grav 1.031 <=1.030 01/06/2017 [facility] URINE AND STOOL UA Color Ltyellow 01/06/2017 [facility] URINE AND STOOL UA Urobilinogen <=1.0 mg/dL 0.1 - 1.0 01/06/2017 [facility] URINE AND STOOL UA RBC <1 0 - 2 01/06/2017 [facility] CARDIAC ENZYMES BNP 16 <=100 pg/mL 01/05/2017 [facility] CARDIAC ENZYMES Troponin-I <0.02 0.00 - 0.40 01/05/2017 [facility] CHEM PANEL Globulin 2.9 2.7 - 4.2 01/05/2017 [facility] CHEM PANEL Bili Indirect 0.4 0.0 - 1.0 01/05/2017 [facility] CHEM PANEL A/G Ratio 1.1 0.7 - 1.6 01/05/2017 [facility] CHEM PANEL Bili Total 0.5 0.2 - 1.3 01/05/2017 [facility] CHEM PANEL Bili Direct 0.1 0.0 - 0.3 01/05/2017 [facility] CHEM PANEL Total Protein 6.2 6.4 - 8.4 01/05/2017 [facility] CHEM PANEL ALT 46 0 - 65 01/05/2017 [facility] CHEM PANEL Albumin Lvl 3.3 3.5 - 5.0 01/05/2017 [facility] CHEM PANEL Alk Phos 51 39 - 136 01/05/2017 [facility] CHEM PANEL AST 20 0 - 37 01/05/2017 [facility] ELECTROLYTES AGAP 14.3 10.0 - 20.0 01/05/2017 [facility] ELECTROLYTES eGFR 71 01/05/2017 Result Comment: The eGFR is calculated [...] should be multiplied by the estimated BMI. [facility] ELECTROLYTES Calcium Lvl 7.6 8.5 - 10.5 01/05/2017 [facility] ELECTROLYTES Chloride Lvl 103 95 - 109 01/05/2017 [facility] ELECTROLYTES CO2 27 24 - 32 01/05/2017 [facility] ELECTROLYTES Sodium Lvl 140 135 - 145 01/05/2017 [facility] ELECTROLYTES Potassium Lvl 4.3 3.5 - 5.1 01/05/2017 [facility] ELECTROLYTES Glucose Lvl 178 70 - 99 01/05/2017 [facility] ELECTROLYTES BUN 21 7 - 22 01/05/2017 [facility] ELECTROLYTES Creatinine Lvl 1.10 0.50 - 1.40 01/05/2017 [facility] HEMATOLOGY RBC 4.32 4.70 - 6.10 01/05/2017 [facility] HEMATOLOGY WBC 5.5 3.7 - 10.4 01/05/2017 [facility] HEMATOLOGY MCV 94.0 80.0 - 94.0 01/05/2017 [facility] MCHC 34.0 32.0 - 36.0 01/05/2017 [facility] MCH 32.0 27.0 - 31.0 01/05/2017 [facility] Hgb 13.8 14.0 - 18.0 01/05/2017 [facility] Hct 40.6 42.0 - 54.0 01/05/2017 [facility] RDW 13.6 11.5 - 14.5 01/05/2017 [facility] MPV 8.3 7.4 - 10.4 01/05/2017 [facility] Platelet 160 133 - 450 01/05/2017 [facility] Lymphocytes 2.5 20.0 - 40.0 01/05/2017 [facility] HEMATOLOGY Eosinophils 0.1 0.0 - 4.0 01/05/2017 [facility] Monocytes 4.8 2.0 - 12.0 01/05/2017 [facility] HEMATOLOGY Segs 92.3 45.0 - 75.0 01/05/2017 [facility] Monocytes # 0.3 0.0 - 0.8 01/05/2017 [facility] Lymphocytes # 0.1 1.0 - 5.5 01/05/2017 [facility] Segs-Bands # 5.1 1.5 - 8.1 01/05/2017 [facility] HEMATOLOGY Basophils 0.3 0.0 - 1.0 01/05/2017 [facility] Pathology Reports No Data Provided for This Section Diagnostic Reports Report Value Date Source Abdomen 2 views DX 2 VIEW ABDOMEN INDICATION: Food poisoning 2 weeks ago. Patient now says her 'stomach doesn't feel right' however she denies nausea, abdominal pain, vomiting or diarrhea. COMPARISON: No priors available. The bowel gas pattern, soft tissues and bones appear normal. Lung bases clear. IMPRESSION: Normal exam. END IMPRESSION SL: [id number] 11/27/2017 [facility] Spine lumbar wo contrast MRI EXAM: MRI LUMBAR SPINE WITHOUT CONTRAST DATE: 02/14/2017 6:16 PM [employer] . ORDERING PHYSICIAN: Kallie Rivera MD CLINICAL [...] 2. Please see additional comment above. 02/14/2017 [facility] Consultation Notes No Data Provided for This Section Discharge Summaries No Data Provided for This Section History and Physicals No Data Provided for This Section Vital Signs Vital Sign Value Date Comments Source Systolic (mm Hg) 116 01/06/2017 [facility] Diastolic (mm Hg) 65 01/06/2017 [facility] Respitory Rate 16 01/06/2017 [facility] Heart Rate 76 01/06/2017 [facility] Temperature Oral (F) 98.1 F 01/06/2017 [facility] Respitory Rate 16 01/06/2017 [facility] Heart Rate 89 01/06/2017 [facility] Temperature Oral (F) 99.9 F 01/06/2017 [facility] Systolic (mm Hg) 119 01/06/2017 [facility] Diastolic (mm Hg) 63 01/06/2017 [facility] Temperature Oral (F) 99 F 01/06/2017 [facility] Systolic (mm Hg) 115 01/06/2017 [facility] Diastolic (mm Hg) 62 01/06/2017 [facility] Respitory Rate 17 01/06/2017 [facility] Heart Rate 91 01/06/2017 [facility] Height 177.8 cm 01/05/2017 [facility] Weight 102.273 01/05/2017 [facility] BMI Calculated 32.35 01/05/2017 [facility] Encounters Location Location Details Encounter Type Encounter Number Reason For Visit Attending Provider ADM Date DC Date Status Source [facility] OP Therapy Patients [id number] Anderson Arabella 04/11/2014 05/11/2014 [facility] OP Therapy Patients [id number] Anderson Arabella 05/15/2014 06/14/2014 [facility] Observation [id number] Chilo Zarco 01/05/2017 01/06/2017 [facility] Outpatient Imaging [facility] Outpt Diag Services [id number] Kallie Rivera 02/14/2017 02/15/2017 [facility] Outpatient [id number] Ilan Moreno 11/27/2017 11/28/2017 [facility] Outpatient [id number] ALYSSIA COOPER 05/29/2018 Active [facility] Discharged Inpatient (obs) [id number] JACOB BALTAZAR MD 07/03/2018 07/05/2018 [facility] Outpatient [id number] Alyssia Cooper 11/27/2018 Active [facility] Outpatient [id number] Alyssia Cooper 12/25/2018 Active [facility] Procedures Procedure Code Date Perfomer Comments Source Magnetic resonance imaging of brain without contrast [id number] 07/04/2018 C[facility] Ankle joint operations [id number] [facility] Carpal tunnel release [id number] [facility] Cataract surgery [id number] [facility] Colonoscopy [id number] [facility] Knee replacement [id number] [facility] Assessment and Plan Assessment and Plan Date Source Extracted from:Title: Clinical Document Author: Chilo Zarco MD Date: [...] form Follow-up with primary care physician Extracted from:Title: Clinical Document Author: Chilo Zarco MD Date: [...] DVT prophylaxis: SCDs Disposition: Pending clinical improvement 01/06/2017 [facility] Plan of Care Plan of Care Date Source Discharge Date 07/05/18 11:45am Disposition HOME, SELF-CARE Instructions/Education Provided Chest Pain - Noncardiac Chest Pain - Chest Wall Prescriptions See Medication Section Additional Instructions/Education follow up pcp in 1 week 07/05/2018 [facility] Social History Social History Date Source Smoking Status Start Date Stop Date Never Smoker 07/05/2018 [facility] Social History TypeResponse Substance Abuse Use: None. Previous Treatment: None. [...] Days No; Reg Smoking Cessation Counseling No 01/05/2017 [facility] Social History TypeResponse Substance Abuse Use: None. Previous Treatment: None. [...] Days No; Reg Smoking Cessation Counseling No entered on: 05/29/18 01/05/2017 [facility] No data available for this section 06/14/2014 [facility] [place] Family History No Data Provided for This Section Advance Directives Order Name Results Value Date Source Advance Directives Advance Directives Directive Response Recorded Date/Time Does the patient have an advance directive? No 07/03/18 4:50pm If yes, is advance directive on file with [facility]? No 07/03/18 4:50pm If not on file with [facility] will patient provide a copy? No 07/03/18 4:50pm Do you have a Directive to Physician? Yes 07/03/18 1:40pm Do you have a Medical Power of Guest Request Runner? No 07/03/18 1:40pm Do you have an out of hospital Do Not Resuscitate Order? No 07/03/18 1:40pm Do you have any special needs we should be aware of? No 07/03/18 1:40pm Do you have a support person here with you today? Yes 07/03/18 1:40pm Did patient receive Notice of Privacy Practices? Yes 07/03/18 1:40pm Did patient receive patient rights and responsibilities? Yes 07/03/18 1:40pm 07/05/2018 [facility] Functional Status No Data Provided for This Section
--- OUTSIDE RECORDS SUMMARY | 2018-12-06 05:28 | XMS REPORT | Summary of Care ---
Author Author REX Weeks, [facility] Unknown Address Unknown Phone Unavailable Care Team Providers Care Electrical Systems Engineer Name Role Phone JARRET Weeks, GM Unavailable Unavailable GEN MARTINEZ M.D., TAB Unavailable Unavailable CHRISTY Weeks, ABBI Unavailable Ino ONOFRE M.D., SHARON Unavailable Unavailable Reggie MHussain, Hailee Unavailable Unavailable TRACY BRAGG, NORMAN FERMIN Unavailable Unavailable TRACY BRAGG, NORMAN Unavailable Unavailable KINGSTON RIDLEY, SIL GUTIERRES Unavailable Unavailable KINGSTON BRAGG, SHARON S Unavailable Unavailable CHRISTY BARON MD, ABBI Capps Unavailable Unavailable DELMY BRAGG, ASLAM M Unavailable Unavailable Unavailable Unavailable Functional Status Name Dates Details Functional status health issues are not documented Status: Name Dates Details Cognitive status health issues are not documented Status: Problems Name Dates Details Gastroesophageal reflux disease, esophagitis presence not specified (530.81, K21.9) Status: Active Tear of medial meniscus of knee (836.0, S83.249A) Status: Active Incomplete tear of left rotator cuff (840.4, M75.112) Status: Active PVD (peripheral vascular disease) (443.9, I73.9) Status: Active Hyperlipidemia (272.4, E78.5) Status: Active Pain of left hand (729.5, M79.642) Status: Active Cubital tunnel syndrome on left (354.2, G56.22) Status: Active Trigger little finger of left hand (727.03, M65.352) Status: Active Chondromalacia, knee, 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 * Start : 13-Dec-2016 Active Carvedilol 25 MG Oral Tablet TAKE 1 TABLET TWICE DAILY. * Quantity: 180 Refills: 1 GM WHEAT M.D. * Start : 13-Dec-2016 Active Furosemide 20 MG Oral Tablet TAKE 1 TABLET BY MOUTH EVERY MORNING * Quantity: 30 Refills: 0 GM WHEAT M.D. * Start : 12-Jun-2018 Active Losartan Potassium 50 MG Oral Tablet TAKE 1 TABLET EVERY DAY * Quantity: 90 Refills: 1 GM WHEAT M.D. * Start [...] Refills: 0 * Start : 24-Jul-2018 Active Promethazine HCl - 25 MG Oral Tablet ONE TAB EVERY 6 HOURS PRN NAUSEA * Quantity: 30 Refills: 0 ABBI HARRISON M.D. * Start : 04-Oct-2018 Active Acetaminophen-Codeine #3 300-30 MG Oral Tablet TAKE 1 TABLET EVERY 6 HOURS * Quantity: 20 Refills: 0 ABBI HARRISON M.D. * Start : 04-Oct-2018 Active Ondansetron HCl - 8 MG Oral Tablet TAKE 1 TABLET Every twelve hours * Quantity: 15 Refills: 0 KINGSTON Weeks, SHARON * Start : 26-Oct-2018 Active Colace 100 MG Oral Capsule TAKE 1 CAPSULE 3 TIMES DAILY. * Quantity: 45 Refills: 0 KINGSTON Weeks, SHARON * Start : 26-Oct-2018 Active Allergies and Adverse Reactions Name Dates Details No Known Drug Allergies (Allergy) Status: Active Past Medical History Name Dates Details Diabetes (250.00, E11.9) Status: Active Hypertension (401.9, I10) Status: Active History of stroke (V12.54, Z86.73) Status: Resolved Procedures Procedure Dates Details Post Op Promis 29 Survey Date: 09-Nov-2018 [UTP] Ortho - Surgery Scheduling Date: 30-Nov-2018 History of Carpal tunnel surgery Completed History [...] smoked Vital Signs Date Test Result Details [id number] Height 70 in Status: Weight 230 lb Status: Body Mass Index Calculated 33 kg/m2 Status: Body Surface Area Calculated 2.22 m2 Status: Results Date Description Value Details Results not documented Plan of Care Name Dates Details Planned Observations [UTP] Ortho - Surgery Scheduling On: 14-Jan-2019 Intent Planned Goals not documented Planned Encounters Appointment; KEVYN BARRIOS M.D. On: 13-Dec-2018 15:00 Appointment; SAJI GOODMAN M.D. On: 24-Dec-2018 7:00 Appointment; SAJI GOODMAN M.D. On: 25-Dec-2018 13:15 Instructions Name Dates Details Instructions not documented [...] Problem not documented On: 09-Aug-2017 14:00 Appointment; , VENOUS Encounter Diagnosis: Problem not documented On: [...] Diagnosis: Problem not documented On: 16-Aug-2018 11:00 Appointment; GM WHEAT M.D. Encounter Diagnosis: Problem not documented On: 24-Sep-2018 13:45 Appointment; SHARON ONOFRE M.D. Encounter Diagnosis: Problem not documented On: 04-Oct-2018 10:45 Appointment; ABBI HARRISON M.D. Encounter Diagnosis: Problem not documented On: 05-Oct-2018 7:00 Appointment; ABBI HARRISON M.D. Encounter Diagnosis: Problem not documented On: 15-Oct-2018 10:00 Appointment; ABBI HARRISON M.D. Encounter Diagnosis: Problem not documented On: 18-Oct-2018 10:15 Appointment; SHARON ONOFRE M.D. Encounter Diagnosis: Problem not documented On: 29-Oct-2018 9:00 Appointment; ABBI HARRISON M.D. Encounter Diagnosis: Problem not documented On: 12-Nov-2018 10:15 Appointment; SHARON ONOFRE M.D. Encounter Diagnosis: Problem not documented On: 13-Nov-2018 8:30 Appointment; SAJI GOODMAN M.D. Encounter Diagnosis: Problem not documented On: 30-Nov-2018 13:15
[2018-12-06 07:44] VITALS: BP 132/70
== END | disposition home or self-care (01) ==
LOC: OR 05:09
PROVIDERS: ATTEND Internal Medicine Gastroenterology
DX: R19.7 Diarrhea, unspecified (principal); Z86.010 Personal history of colon polyps; K57.30 Diverticulosis of large intestine without perforation or abscess without bleeding; K64.8 Other hemorrhoids; K21.9 Gastro-esophageal reflux disease without esophagitis; Z71.3 Dietary counseling and surveillance; G47.33 Obstructive sleep apnea (adult) (pediatric); E11.9 Type 2 diabetes mellitus without complications; I10 Essential (primary) hypertension; E66.9 Obesity, unspecified; Z01.810 Encounter for preprocedural cardiovascular examination; Z01.812 Encounter for preprocedural laboratory examination; Z68.32 Body mass index [BMI] 32.0-32.9, adult; Z86.73 Personal history of transient ischemic attack (TIA), and cerebral infarction without residual deficits
CPT/HCPCS: 36415 ×2; 45378; 82948; 85025; 93005; J2250; J2704; J3010